=== PATIENT | male | born 1940 | race Caucasian/White ===

== ENCOUNTER 2018-09-06 17:30 | Inpatient (IN) | payer MEDICARE, OTHER ==
[~2018-09-06] VITALS: Ht 180.3 cm; Wt 72.3 kg
[2018-09-06 18:00] VITALS: BP 122/65
[2018-09-06] MEDS ORDERED: METHYL SALICYLATE/MENTHOL TOPICAL OINTMENT 29GM TUBE. TP PRN (18:15)
[2018-09-06] MEDS ORDERED: MAG HYDROX/AL HYDROX/SIMETH 30 ML ORAL.SUSP PO PRN (18:15)
[2018-09-06] MEDS ORDERED: MAGNESIUM HYDROXIDE 2,400 MG/30 ML ORAL.SUSP. PO PRN (18:15)
[2018-09-06] MEDS ORDERED: LEVO112T4 PO (18:17)
[2018-09-06] MEDS ORDERED: SPIR25TA5 PO (18:17)
[2018-09-06] MEDS ORDERED: LISI-334 PO (18:17)
[2018-09-06] MEDS ORDERED: QUET100T4 PO (18:17)
[2018-09-06] MEDS ORDERED: ASPI-630 PO (18:17)
[2018-09-06] MEDS ORDERED: FURO40TA4 PO (18:17)
[2018-09-06] MEDS ORDERED: APIX5TAB3 PO (18:17)
[2018-09-06 21:00] VITALS: BP 128/68
[2018-09-06] MEDS: QUEtiapine 100 MG TABLET. PO SCH (21:11)
[2018-09-06] MEDS: APIXABAN 5 MG TABLET. PO SCH (21:11)
--- NOTE | 2018-09-06 22:36 | PDOC ---
Exam Note: Mike Note: Please also refer to the separate dictated note~for this date of service dictated separately. Discussed the patient with Nursing staff reviewed the chart.~Reviewed interim history and current functioning. Reviewed vital signs,~Labs/ Radiology~and current medications noted below. Continue current treatment with the changes noted in the dictated addendum note Assessment: Vital Signs: Vital Signs Date Time Temp Pulse Resp B/P (MAP) Pulse Ox O2 Delivery O2 Flow Rate FiO2 09/06/18 21:00 97.6 82 20 128/68 (88) 96 09/06/18 18:00 Room Air Current Medications: Meds: Current Medications Acetaminophen (Tylenol) 650 mg PRN Q6HRS PRN PO PAIN / TEMP; Start 09/06/18 at 18:15 Multi-Ingredient Ointment (Analgesic [place]) 1 jose raul PRN QID PRN TP MUSCLE PAIN; Start 09/06/18 at 18:15 Al Hydroxide/Mg Hydroxide (Mylanta Plus Xs) 15 ml PRN AFTMEALHC PRN PO DYSPE PSIA; Start 09/06/18 at 18:15 Magnesium Hydroxide (Milk Of Magnesia) 2,400 mg PRN QHS PRN PO CONSTIPATION; Start 09/06/18 at 18:15 Levothyroxine Sodium (Synthroid) 112 mcg DAILYAC PO ; Start 09/07/18 at 07:30 Lisinopril (Prinivil) 20 mg DAILY PO ; Start 09/07/18 at 09:00 Apixaban (Eliquis) 5 mg BID PO Last administered on 09/06/18at 21:11; Start 09/06/18 at 21:00 Aspirin (Children'S Aspirin) 81 mg DAILYWBKFT PO ; Start 09/07/18 at 08:00 Furosemide (Lasix) 40 mg BIDWMEALS PO ; Start 09/07/18 at 08:00 Quetiapine Fumarate (SEROquel) 100 mg BID PO Last administered on 09/06/18at 21:11; Start 09/06/18 at 21:00 Spironolactone (Aldactone) 25 mg DAILY PO ; Start 09/07/18 at 09:00 Olanzapine (ZyPREXA ZYDIS) 2.5 mg PRN Q2HR PRN PO PSYCHOSIS Last administered on 09/06/18at 21:12; Start 09/06/18 at 18:30 Active Scripts Active Reported Seroquel (Quetiapine Fumarate) 100 Mg Tablet 100 Mg PO BID Levothyroxine Sodium 112 Mcg Tablet 112 Mcg PO DAILYAC Aspirin 81 Mg Tab.chew 81 Mg PO DAILY Spironolactone 25 Mg Tablet 25 Mg PO DAILY Lisinopril 20 Mg Tablet 20 Mg PO DAILY Furosemide 40 Mg Tablet 40 Mg PO BIDWMEALS Eliquis (Apixaban) 5 Mg Tablet 5 Mg PO BID I have reviewed the current psychotropics carefully including drug interactions. Risk benefit ratio favors no change other than as noted in my dictated progress note. 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
[2018-09-07] MEDS: LEVOTHYROXINE 112 MCG TABLET PO SCH ×2 (05:25→05:28)
[2018-09-07 05:49] VITALS: BP 154/76
[2018-09-07 06:59] LABS: BASO # 0.1 x10^3/uL (0.0-0.2); BASO % 2 % (0-3); EOS # 0.6 x10^3/uL (0.0-0.7); EOS % 7 % (0-3); HEMATOCRIT 38.2 % (39.0-53.0); HEMOGLOBIN 12.4 g/dL (13.0-17.5); LYMPH # 2.6 x10^3/uL (1.0-4.8); LYMPH % 31 % (24-48); MEAN CORPUSCULAR HEMOGLOBIN 28 pg (25-35); MEAN CORPUSCULAR HGB CONC 33 g/dL (31-37); MEAN CORPUSCULAR VOLUME 87 fL (79-100); MONO % 11 % (0-9); NEUT # 4.2 x10^3uL (1.8-7.7); NEUT % 50 % (31-73); PLATELET COUNT 461 x10^3/uL (140-400); RED BLOOD COUNT 4.38 x10^6/uL (4.30-5.70); WHITE BLOOD COUNT 8.5 x10^3/uL (4.0-11.0)
[2018-09-07 07:15] LABS: ALBUMIN 2.7 g/dL (3.4-5.0); ALBUMIN/GLOBULIN RATIO 0.6 (1.0-1.7); CALCIUM 9.1 mg/dL (8.5-10.1); CREATININE 1.1 mg/dL (0.7-1.3); GFR 64.7; MAGNESIUM 2.3 mg/dL (1.8-2.4); POTASSIUM 3.8 mmol/L (3.5-5.1); TOTAL BILIRUBIN 0.3 mg/dL (0.2-1.0); TOTAL PROTEIN 7.6 g/dL (6.4-8.2)
[2018-09-07] MEDS ORDERED: LEVOTHYROXINE 112 MCG TABLET PO SCH (07:30)
[2018-09-07] MEDS: QUEtiapine 100 MG TABLET. PO SCH ×2 (08:16→19:13)
[2018-09-07] MEDS: APIXABAN 5 MG TABLET. PO SCH ×2 (08:17→19:13)
[2018-09-07] MEDS: SPIRONOLACTONE 25 MG TABLET PO SCH (08:19)
[2018-09-07] MEDS: LISINOPRIL 20 MG TABLET PO SCH (08:19)
[2018-09-07] MEDS: FUROSEMIDE 40 MG TABLET PO SCH (08:19)
[2018-09-07] MEDS: ASPIRIN 81 MG TAB.CHEW PO SCH (08:19)
--- NOTE | 2018-09-07 08:42 | HP ---
ADMIT DATE: 09/06/2018 PSYCHIATRIC ADMISSION HISTORY/EVALUATION This late entry 09/06/2018 covers elements not covered in my initial note. Met with the patient in the evening of 09/06/2018, discussed with nursing staff, previously discussed with nursing staff on the patient's admission and with Marisa Ramirez, treatment coordinator, after we received the referral from [facility] and [facility] by Dr. Lockhart, the patient's primary care physician, on account of the patient's extremely out of control, unmanageable behavior within the context of his significant cognitive deficits. He was exit seeking, hitting staff, provoking other residents intentionally. He was walking up to other residents with fist, withdrawn. He threw hot coffee at others around him. Behaviors are deemed dangerous, out of control, unmanageable and he has failed outpatient psychiatric interventions with Steffany Ko, nurse practitioner, and referred for inpatient psychiatric stabilization. The patient resides at the [facility] and [facility], but was referred to the Emergency Room on 09/06/2018 because of dangerous, out of control behaviors. He was evaluated there. Behaviors deemed to be dangerous, out of control, unmanageable at the alf and then referred to us for inpatient psychiatric stabilization. CHIEF COMPLAINT: "I was in the [place]. Yes, I used to drink heavy. No, I do not have any problems, getting angry." The patient is quite confused, oriented to himself, felt he had been here about 2 months, even though he was just admitted earlier in the day. HISTORY OF PRESENT ILLNESS: The patient has a history of dementia, Alzheimer's, vascular, possibly due to past alcohol usage. He has been residing at the above facility for some time, but recently getting more agitated, angry, aggressive, disruptive and exit seeking as noted above. He has been hitting staff, provoking other residents intentionally. Multiple medication changes have been attempted and rooms have been changed to change the environment, moved away from doors. Additionally, staffs have taken his coat away as part of the behavioral interventions and he has failed all of this. No clear history of bipolar disorder. No active suicidal or homicidal ideation other than as noted above. PAST PSYCHIATRIC HISTORY: Past psychiatric history is as noted above. PAST MEDICAL HISTORY: Medical history is positive for atrial fibrillation, past history of alcohol abuse, cataracts, hypertension, arthritis, muscle weakness, hypothyroidism, cancer bladder, hyperlipidemia, hyponatremia, status post transient ischemic attack, chronic obstructive pulmonary disease, chronic constipation, chronic joint pain, benign prostatic hypertrophy. ACCU-CHEKS: None. DIET: Regular. CODE STATUS: DNR. ALLERGIES: HYDROCODONE, OXYCODONE, TRAMADOL. Ambulates ad farhana. UA on 09/06/2018 is negative at the [facility]. The patient was initially referred to the Emergency Room and he was in fact did refer directly to us from the ER. CURRENT PSYCHOTROPICS: Seroquel 100 mg twice a day. FAMILY HISTORY: Noncontributory. SOCIAL HISTORY: Past history of alcohol abuse. No physical, sexual or elder abuse history is noted. He is not known to be a perpetrator. REACTION TO HOSPITALIZATION: The patient oblivious of where he is. ASSETS: Supportive family, stable living at the alf. MENTAL STATUS EXAMINATION: The patient was seen individually in evening of 09/06/2018. He is oriented to himself, verbal, but felt he had been here about 2 months. He is unaware of the year or date, month, or who the president was, or where he was. Insight, judgment, recent and remote memory, attention, concentration, fund of knowledge is poor, consistent with his diagnoses. LABORATORY DATA: Reviewed. IMPRESSION: Major neurocognitive disorder, multifactorial, Alzheimer, vascular and related to past alcohol usage with delusion, depression, behavioral disturbance; anxiety disorder, unspecified; impulse control disorder, unspecified. Rest diagnoses as noted above. PLAN: Admit to Geropsychiatry Unit at [facility]. I will see the patient daily individually from a psychiatric standpoint. Medical followup with Dr. Cheng. Continue the patient on his current psychotropics. We will add Zyprexa 2.5 mg q. 2 hours p.r.n. psychosis, agitation, max 15 mg in 24 hours. Even during the short while he has been on the unit, he is quite irritable, labile, anxious, paranoid, and nursing staff requested a p.r.n. We will make further adjustments as clinically indicated and consider using SSRIs and Depakote as a mood stabilizer as clinically indicated. ESTIMATED LENGTH OF STAY: 10-12 days. DISPOSITION: Plans would be back to alf once stable. MAN Aaron LIM MD DR: Sanjeev JOB#: [id number] / [id number]
[2018-09-07 14:38] LABS: THYROID STIM HORMONE (TSH) 2.695 uIU/mL (0.358-3.740)
--- NOTE | 2018-09-07 15:23 | RAD ---
Chest, 2 views, 09/07/2018: HISTORY: COPD with crepitance The heart size is normal. There is calcific plaquing of the aorta. Several linear parenchymal opacities are probably scars. No pulmonary consolidation is seen. There is no evidence of pleural fluid. Mild scattered spurs are present in the spine. IMPRESSION: 1. Aortic atherosclerosis. 2. Minimal parenchymal scarring. 3. No acute infiltrate is detected. Electronically signed by: Reese Morillo MD (09/07/2018 3:20 PM) [facility]
[2018-09-07 16:27] VITALS: BP 137/67
[2018-09-07 19:07] LABS: THYROXINE 5.7 ug/dL (4.5-12.0)
--- NOTE | 2018-09-07 20:04 | PN ---
DATE: 09/06/2018 PSYCHIATRIC PROGRESS NOTE This late entry 09/06/2018 covers elements not covered in my initial note. DICTATION ENDS HERE. KAITLIN LIM MD DR: Sanjeev JOB#: [id number] / [id number]
[2018-09-07] MEDS: MIRTAZAPINE 7.5 MG TABLET. PO SCH (20:20)
--- NOTE | 2018-09-07 22:41 | PDOC ---
Exam Note: Mike Note: Please also refer to the separate dictated note~for this date of service dictated separately.~Patient seen individually. Discussed the patient with Nursing staff reviewed the chart.~Reviewed interim history and current functioning. Reviewed vital signs,~Labs/ Radiology~and current medications noted below. Continue current treatment with the changes noted in the dictated addendum note Assessment: Vital Signs: Vital Signs Date Time Temp Pulse Resp B/P (MAP) Pulse Ox O2 Delivery O2 Flow Rate FiO2 09/07/18 16:27 97.3 69 16 137/67 (90) 93 09/06/18 18:00 Room Air I&O Intake and Output 09/07/18 06:59 Intake Total 600 ml Balance 600 ml Intake Oral 600 ml # Voids 1 Labs: Laboratory Tests Test 09/07/18 06:47 White Blood Count 8.5 x10^3/uL (4.0-11.0) Red Blood Count 4.38 x10^6/uL (4.30-5.70) Hemoglobin 12.4 g/dL (13.0-17.5) L Hematocrit 38.2 % (39.0-53.0) L Mean Corpuscular Volume 87 fL (79-100) Mean Corpuscular Hemoglobin 28 pg (25-35) Mean Corpuscular Hemoglobin Concent 33 g/dL (31-37) Red Cell Distribution Width 17.0 % (11.5-14.5) H Platelet Count 461 x10^3/uL (140-400) H Neutrophils (%) (Auto) 50 % (31-73) Lymphocytes (%) (Auto) 31 % (24-48) Monocytes (%) (Auto) 11 % (0-9) H Eosinophils (%) (Auto) 7 % (0-3) H Basophils (%) (Auto) 2 % (0-3) Neutrophils # (Auto) 4.2 x10^3uL (1.8-7.7) Lymphocytes # (Auto) 2.6 x10^3/uL (1.0-4.8) Monocytes # (Auto) 1.0 x10^3/uL (0.0-1.1) Eosinophils # (Auto) 0.6 x10^3/uL (0.0-0.7) Basophils # (Auto) 0.1 x10^3/uL (0.0-0.2) Sodium Level 144 mmol/L (136-145) Potassium Level 3.8 mmol/L (3.5-5.1) Chloride Level 106 mmol/L (98-107) Carbon Dioxide Level 31 mmol/L (21-32) Anion Gap 7 (6-14) Blood Urea Nitrogen 16 mg/dL (8-26) Creatinine 1.1 mg/dL (0.7-1.3) Estimated GFR (Cockcroft-Gault) 64.7 BUN/Creatinine Ratio 15 (6-20) Glucose Level 79 mg/dL (70-99) Calcium Level 9.1 mg/dL (8.5-10.1) Magnesium Level 2.3 mg/dL (1.8-2.4) Iron Level 44 ug/dL (65-175) L Total Iron Binding Capacity 276 ug/dL (250-450) Iron Saturation 16 % (15-34) Total Bilirubin 0.3 mg/dL (0.2-1.0) Aspartate Amino Transferase (AST) 20 U/L (15-37) Alanine Aminotransferase (ALT) 23 U/L (16-63) Alkaline Phosphatase 88 U/L (46-116) Total Protein 7.6 g/dL (6.4-8.2) Albumin 2.7 g/dL (3.4-5.0) L Albumin/Globulin Ratio 0.6 (1.0-1.7) L Triglycerides Level 96 mg/dL (0-150) Cholesterol Level 173 mg/dL (0-200) LDL Cholesterol, Calculated 113 mg/dL (0-100) H VLDL Cholesterol, Calculated 19 mg/dL (0-40) Non-HDL Cholesterol Calculated 132 mg/dL (0-129) H HDL Cholesterol 41 mg/dL (40-60) Cholesterol/HDL Ratio 4.0 25-Hydroxy Vitamin D Total 25.6 ng/mL (30-100) L Thyroid Stimulating Hormone (TSH) 2.695 uIU/mL (0.358-3.740) Thyroxine (T4) 5.7 ug/dL (4.5-12.0) Total Triiodothyronine (TT3) 67 ng/dL (71-180) L Treponema pallidum Antibody Nonreactive (Nonreactive) Current Medications: Meds: Current Medications Acetaminophen (Tylenol) 650 mg PRN Q6HRS PRN PO PAIN / TEMP; Start 09/06/18 at 18:15 Multi-Ingredient Ointment (Analgesic [place]) 1 jose raul PRN QID PRN TP MUSCLE PAIN; Start 09/06/18 at 18:15 Al Hydroxide/Mg Hydroxide (Mylanta Plus Xs) 15 ml PRN AFTMEALHC PRN PO DYSPEPSIA; Start 09/06/18 at 18:15 Magnesium Hydroxide (Milk Of Magnesia) 2,400 mg PRN QHS PRN PO CONSTIPATION; Start 09/06/18 at 18:15 Levothyroxine Sodium (Synthroid) 112 mcg DAILYAC PO ; Start 09/07/18 at 07:30; Stop 09/07/18 at 07:30; Status DC Lisinopril (Prinivil) 20 mg DAILY PO Last administered on 09/07/18at 08:19; Start 09/07/18 at 09:00 Apixaban (Eliquis) 5 mg BID PO Last administered on 09/07/18at 19:13; Start 09/06/18 at 21:00 Aspirin (Children'S Aspirin) 81 mg DAILYWBKFT PO Last administered on 09/07/18 08:19; Start 09/07/18 at 08:00 Furosemide (Lasix) 40 mg BIDWMEALS PO Last administered on 09/07/18at 08:19; Start 09/07/18 at 08:00 Quetiapine Fumarate (SEROquel) 100 mg BID PO Last administered on 09/07/18at 19:13; Start 09/06/18 at 21:00 Spironolactone (Aldactone) 25 mg DAILY PO Last administered on 09/07/18 08:19; Start 09/07/18 at 09:00 Olanzapine (ZyPREXA ZYDIS) 2.5 mg PRN Q2HR PRN PO PSYCHOSIS Last administered on 09/07/18 21:50; Start 09/06/18 at 18:30 Levothyroxine Sodium (Synthroid) 112 mcg DAILYAC PO Last administered on 09/07/18at 05:28; Start 09/07/18 at 06:00 Sertraline HCl (Zoloft) 25 mg DAILY PO ; Start 09/08/18 at 09:00; Stop 09/11/18 at 21:00 Sertraline HCl (Zoloft) 50 mg DAILY PO ; Start 09/12/18 at 09:00 Mirtazapine (Remeron) 7.5 mg QHS PO Last administered on 09/07/18at 20:20; Start 09/07/18 at 21:00 Active Scripts Active Reported Seroquel (Quetiapine Fumarate) 100 Mg Tablet 100 Mg PO BID Levothyroxine Sodium 112 Mcg Tablet 112 Mcg PO DAILYAC Aspirin 81 Mg Tab.chew 81 Mg PO DAILY Spironolactone 25 Mg Tablet 25 Mg PO DAILY Lisinopril 20 Mg Tablet 20 Mg PO DAILY Furosemide 40 Mg Tablet 40 Mg PO BIDWMEALS Eliquis (Apixaban) 5 Mg Tablet 5 Mg PO BID I have reviewed the current psychotropics carefully including drug interactions. Risk benefit ratio favors no change other than as noted in my dictated progress note. 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
[2018-09-07 23:07] LABS: HEMOGLOBIN A1C 6.2 % (4.8-5.6)
--- NOTE | 2018-09-08 04:40 | HP ---
ADMIT DATE: 09/07/2018 HISTORY OF PRESENT ILLNESS: The patient is a 78-year-old male patient, a resident at [facility], who was admitted on account of being extremely out of control, unmanageable behavior within the context of his significant cognitive deficit. He was exit seeking, hitting staff, provoking other residents intentionally. He was walking up to other residents with fist withdrawn. He threw hot coffee at others around him, behaviors that are dangerous, out of control, unmanageable and he has failed outpatient psychiatric intervention and therefore was referred for inpatient psychiatric stabilization. When I questioned him, he denied any complaint. PAST MEDICAL HISTORY: Significant for atrial fibrillation, hypertension, generalized osteoarthritis, muscle weakness, hypothyroidism, bladder cancer, hyperlipidemia, hypernatremia, has had also transient ischemic attack, chronic obstructive pulmonary disease, chronic constipation, benign prostatic hypertrophy. PAST SURGICAL HISTORY: Unobtainable. ALLERGIES: HE IS ALLERGIC TO HYDROCODONE, OXYCODONE AND TRAMADOL. FAMILY HISTORY: Noncontributory. SOCIAL HISTORY: He is a resident at [facility] and [facility]. He apparently does not smoke. He drinks alcohol currently, although he has a history of alcohol abuse before. MEDICATIONS: He is currently on following medications: He is on apixaban 5 mg twice a day, lisinopril 20 mg once a day, spironolactone 25 mg daily, aspirin 81 mg once a day, quetiapine fumarate 100 mg twice a day, furosemide 40 mg twice a day and levothyroxine sodium 112 mcg daily. PHYSICAL EXAMINATION: GENERAL: When I examined him, he looked pale, somewhat cachectic, but no jaundice, cyanosis or thyromegaly. No jugular venous distention. No limb edema. VITAL SIGNS: His heart rate was 72, blood pressure was 154/76, temperature was 97.4, respiratory rate was 18 and oxygen saturation was 95% on room air. HEAD, EYES, EARS, NOSE AND THROAT: Showed normocephalic, atraumatic. NECK: Supple. HEART: Showed normal first and second heart sounds. No gallop, rub or murmur. CHEST: Shows central trachea, equal bilateral expansion, air entry, vesicular sounds with crepitation, mostly in the right side posteriorly. ABDOMEN: Scaphoid, soft, nontender. NEUROLOGIC: He is demented, but without any obvious lateralizing sign. All his cranial nerves are intact. He moves extremities without difficulty. He has severe proximal myopathy. He is unable to stand up from sitting position. He has also very unsteady gait and he is shuffling. LABORATORY DATA: His lab work showed a serum sodium 144, potassium 3.8, chloride 106, bicarbonate 31, anion gap of 7, BUN 16, creatinine 1.1, estimated GFR was 65 mL per minute. His glucose was 79, calcium was 9.1, magnesium was 2.3. Total bilirubin, AST, ALT, alkaline phosphatase were normal. Total protein was 7.6, albumin was 2.7. Serum triglycerides of 96. Total cholesterol 173, LDL cholesterol 113, VLDL was 19, HDL cholesterol was 41 and the ratio was 4. TSH was 2.695. His white cell count was 8500, hemoglobin 12, hematocrit 38, MCV 87, and platelet count of 161,000 with normal manual differential. IMPRESSION: In summary, this is a 78-year-old male patient, who was admitted on account of being extremely out of control with unmanageable behavior within the context of his significant cognitive deficit. He apparently was exit seeking, hitting staff, provoking other resident intentionally. He was walking up to other residents with fist withdrawn. He throws hot coffee at others around him and therefore, he was admitted for inpatient psychiatric stabilization medically. He has multiple medical problems including hypertension, hyperlipidemia, atrial fibrillation, hypothyroidism. He is also known to have transient ischemic attack, chronic obstructive pulmonary disease, benign prostatic hypertrophy, and chronic constipation as well as osteoarthritis. His lab works seemed to be well within acceptable range and his medications seem to be appropriate. His thyroid function test is normal. Given his unsteady gait, he is probably going to be high risk for fall and bleeding. He is on apixaban and aspirin. PLAN: My plan is for now to continue with all his current medication. I will obviously await for the result of other lab work that are still pending at the time of this dictation and I will order a chest x-ray and as he has prominent crepitation mostly in the right side posteriorly. Thank you, Dr. Kerr for allowing me to participate in the care of this patient. CARRIE CARREON MD DR: ABEL/dayna JOB#: [id number] / [id number]
[2018-09-08] MEDS: LEVOTHYROXINE 112 MCG TABLET PO SCH (05:37)
[2018-09-08 05:53] VITALS: BP 121/71
[2018-09-08] MEDS: SERTRALINE 25 MG TABLET. PO SCH (07:58)
[2018-09-08] MEDS: LISINOPRIL 20 MG TABLET PO SCH (07:59)
[2018-09-08] MEDS: ASPIRIN 81 MG TAB.CHEW PO SCH (07:59)
[2018-09-08] MEDS: SPIRONOLACTONE 25 MG TABLET PO SCH (07:59)
[2018-09-08] MEDS: APIXABAN 5 MG TABLET. PO SCH ×2 (07:59→19:26)
[2018-09-08] MEDS: QUEtiapine 100 MG TABLET. PO SCH ×2 (07:59→19:26)
[2018-09-08] MEDS: FUROSEMIDE 40 MG TABLET PO SCH ×2 (07:59→16:54)
[2018-09-08 15:53] VITALS: BP 138/79
[2018-09-08] MEDS: DIVALPROEX 125 MG CAP.SPRINK PO SCH (16:54)
[2018-09-08] MEDS: MIRTAZAPINE 7.5 MG TABLET. PO SCH (19:26)
--- NOTE | 2018-09-08 22:33 | PDOC ---
Exam Note: Mike Note: Please also refer to the separate dictated note~for this date of service dictated separately.~Patient seen individually. Discussed the patient with Nursing staff reviewed the chart.~Reviewed interim history and current functioning. Reviewed vital signs,~Labs/ Radiology~and current medications noted below. Continue current treatment with the changes noted in the dictated addendum note Assessment: Vital Signs: Vital Signs Date Time Temp Pulse Resp B/P (MAP) Pulse Ox O2 Delivery O2 Flow Rate FiO2 09/08/18 15:53 97.7 102 22 138/79 (98) 93 Room Air I&O Intake and Output 09/08/18 07:00 Intake Total 1560 ml Balance 1560 ml Intake Oral 1560 ml # Voids 2 # Bowel Movements 1 Current Medications: Meds: Current Medications Acetaminophen (Tylenol) 650 mg PRN Q6HRS PRN PO PAIN / TEMP; Start 09/06/18 at 18:15 Multi-Ingredient Ointment (Analgesic [place]) 1 jose raul PRN QID PRN TP MUSCLE PAIN; Start 09/06/18 at 18:15 Al Hydroxide/Mg Hydroxide (Mylanta Plus Xs) 15 ml PRN AFTMEALHC PRN PO DYSPEPSIA; Start 09/06/18 at 18:15 Magnesium Hydroxide (Milk Of Magnesia) 2,400 mg PRN QHS PRN PO CONSTIPATION; Start 09/06/18 at 18:15 Levothyroxine Sodium (Synthroid) 112 mcg DAILYAC PO ; Start 09/07/18 at 07:30; Stop 09/07/18 at 07:30; Status DC Lisinopril (Prinivil) 20 mg DAILY PO Last administered on 09/08/18at 07:59; Start 09/07/18 at 09:00 Apixaban (Eliquis) 5 mg BID PO Last administered on 09/08/18at 19:26; Start 09/06/18 at 21:00 Aspirin (Children'S Aspirin) 81 mg DAILYWBKFT PO Last administered on 09/08/18 07:59; Start 09/07/18 at 08:00 Furosemide (Lasix) 40 mg BIDWMEALS PO Last administered on 09/08/18at 16:54; Start 09/07/18 at 08:00 Quetiapine Fumarate (SEROquel) 100 mg BID PO Last administered on 09/08/18 19:26; Start 09/06/18 at 21:00 Spironolactone (Aldactone) 25 mg DAILY PO Last administered on 09/08/18 07:59; Start 09/07/18 at 09:00 Olanzapine (ZyPREXA ZYDIS) 2.5 mg PRN Q2HR PRN PO PSYCHOSIS Last administered on 09/07/18 21:50; Start 09/06/18 at 18:30 Levothyroxine Sodium (Synthroid) 112 mcg DAILYAC PO Last administered on 09/08/18 05:37; Start 09/07/18 at 06:00 Sertraline HCl (Zoloft) 25 mg DAILY PO Last administered on 09/08/18 07:58; Start 09/08/18 at 09:00; Stop 09/11/18 at 21:00 Sertraline HCl (Zoloft) 50 mg DAILY PO ; Start 09/12/18 at 09:00 Mirtazapine (Remeron) 7.5 mg QHS PO Last administered on 09/08/18 19:26; Start 09/07/18 at 21:00 Olanzapine (ZyPREXA ZYDIS) 5 mg 1X ONCE PO Last administered on 09/07/18 23:05; Start 09/07/18 at 23:00; Stop 09/07/18 at 23:02; Status DC Divalproex Sodium (Depakote Sprinkles) 125 mg 0900,1700 PO Last administered on 09/08/18 16:54; Start 09/08/18 at 17:00 Active Scripts Active Reported Seroquel (Quetiapine Fumarate) 100 Mg Tablet 100 Mg PO BID Levothyroxine Sodium 112 Mcg Tablet 112 Mcg PO DAILYAC Aspirin 81 Mg Tab.chew 81 Mg PO DAILY Spironolactone 25 Mg Tablet 25 Mg PO DAILY Lisinopril 20 Mg Tablet 20 Mg PO DAILY Furosemide 40 Mg Tablet 40 Mg PO BIDWMEALS Eliquis (Apixaban) 5 Mg Tablet 5 Mg PO BID I have reviewed the current psychotropics carefully including drug interactions. Risk benefit ratio favors no change other than as noted in my dictated progress note. 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
[2018-09-09 06:22] VITALS: BP 174/95
[2018-09-09] MEDS: QUEtiapine 100 MG TABLET. PO SCH ×2 (07:45→19:45)
[2018-09-09] MEDS: SPIRONOLACTONE 25 MG TABLET PO SCH (07:45)
[2018-09-09] MEDS: APIXABAN 5 MG TABLET. PO SCH ×2 (07:45→19:45)
[2018-09-09] MEDS: SERTRALINE 25 MG TABLET. PO SCH (07:45)
[2018-09-09] MEDS: ASPIRIN 81 MG TAB.CHEW PO SCH (07:45)
[2018-09-09] MEDS: DIVALPROEX 125 MG CAP.SPRINK PO SCH ×2 (07:45→17:29)
[2018-09-09] MEDS: LEVOTHYROXINE 112 MCG TABLET PO SCH (07:45)
[2018-09-09] MEDS: FUROSEMIDE 40 MG TABLET PO SCH ×2 (07:46→17:29)
[2018-09-09] MEDS: LISINOPRIL 20 MG TABLET PO SCH (07:46)
[2018-09-09 16:48] VITALS: BP 131/66
[2018-09-09] MEDS: MIRTAZAPINE 7.5 MG TABLET. PO SCH (19:45)
--- NOTE | 2018-09-09 20:55 | PN ---
DATE: 09/07/2018 PSYCHIATRIC PROGRESS NOTE This late entry 09/07/2018 covers elements not covered in my initial note. SUBJECTIVE: I met with the patient in the evening of 09/07/2018. The patient slept 5-1/2 hours previous night. He did well until about lunchtime, then he was extremely agitated, aggressive, disruptive, hitting staff, had to be in the [facility] hallway. He is unsteady on his feet, anxious, restless, obsessive, labile, paranoid. REVIEW OF SYSTEMS: No CV, , pulmonary, eye, ENT system symptoms on review. Reliability poor. MENTAL STATUS EXAM: Oriented to himself. Insight, judgment, recent and remote memory, attention, concentration, fund of knowledge poor, consistent with his diagnosis. IMPRESSION: Major neurocognitive disorder, Alzheimer, vascular with delusion, depression, behavioral disturbance; anxiety disorder, unspecified; impulse control disorder, unspecified. PLAN: Continue psychotropics from initial note. Start Remeron 7.5 mg at bedtime to help with insomnia, anxiety, irritability, and Zoloft 25 mg a day, increasing in 3 days to 50 mg a day for his mood and anxiety symptoms, which worsened his anger, irritability. Rest unchanged for now. MAN Aaron LIM MD DR: JUDITH/dayna JOB#: [id number] / [id number]
--- NOTE | 2018-09-09 22:36 | PDOC ---
Exam Note: Mike Note: Please also refer to the separate dictated note~for this date of service dictated separately.~Patient seen individually. Discussed the patient with Nursing staff reviewed the chart.~Reviewed interim history and current functioning. Reviewed vital signs,~Labs/ Radiology~and current medications noted below. Continue current treatment with the changes noted in the dictated addendum note Assessment: Vital Signs: Vital Signs Date Time Temp Pulse Resp B/P (MAP) Pulse Ox O2 Delivery O2 Flow Rate FiO2 09/09/18 16:48 98.0 104 20 131/66 (87) 94 09/08/18 15:53 Room Air I&O Intake and Output 09/09/18 07:00 Intake Total 1180 ml Balance 1180 ml Intake Oral 1180 ml Current Medications: Meds: Current Medications Acetaminophen (Tylenol) 650 mg PRN Q6HRS PRN PO PAIN / TEMP; Start 09/06/18 at 18:15 Multi-Ingredient Ointment (Analgesic [place]) 1 jose raul PRN QID PRN TP MUSCLE PAIN; Start 09/06/18 at 18:15 Al Hydroxide/Mg Hydroxide (Mylanta Plus Xs) 15 ml PRN AFTMEALHC PRN PO DYSPEPSIA; Start 09/06/18 at 18:15 Magnesium Hydroxide (Milk Of Magnesia) 2,400 mg PRN QHS PRN PO CONSTIPATION; Start 09/06/18 at 18:15 Levothyroxine Sodium (Synthroid) 112 mcg DAILYAC PO ; Start 09/07/18 at 07:30; Stop 09/07/18 at 07:30; Status DC Lisinopril (Prinivil) 20 mg DAILY PO Last administered on 09/09/18at 07:46; Start 09/07/18 at 09:00 Apixaban (Eliquis) 5 mg BID PO Last administered on 09/09/18at 19:45; Start 09/06/18 at 21:00 Aspirin (Children'S Aspirin) 81 mg DAILYWBKFT PO Last administered on 09/09/18 07:45; Start 09/07/18 at 08:00 Furosemide (Lasix) 40 mg BIDWMEALS PO Last administered on 09/09/18 17:29; Start 09/07/18 at 08:00 Quetiapine Fumarate (SEROquel) 100 mg BID PO Last administered on 09/09/18 19:45; Start 09/06/18 at 21:00 Spironolactone (Aldactone) 25 mg DAILY PO Last administered on 09/09/18 07:45; Start 09/07/18 at 09:00 Olanzapine (ZyPREXA ZYDIS) 2.5 mg PRN Q2HR PRN PO PSYCHOSIS Last administered on 09/07/18 21:50; Start 09/06/18 at 18:30 Levothyroxine Sodium (Synthroid) 112 mcg DAILYAC PO Last administered on 09/09/18 07:45; Start 09/07/18 at 06:00 Sertraline HCl (Zoloft) 25 mg DAILY PO Last administered on 09/09/18 07:45; Start 09/08/18 at 09:00; Stop 09/11/18 at 21:00 Sertraline HCl (Zoloft) 50 mg DAILY PO ; Start 09/12/18 at 09:00 Mirtazapine (Remeron) 7.5 mg QHS PO Last administered on 09/09/18 19:45; Start 09/07/18 at 21:00 Olanzapine (ZyPREXA ZYDIS) 5 mg 1X ONCE PO Last administered on 09/07/18at 23:05; Start 09/07/18 at 23:00; Stop 09/07/18 at 23:02; Status DC Divalproex Sodium (Depakote Sprinkles) 125 mg 0900,1700 PO Last administered on 09/09/18at 17:29; Start 09/08/18 at 17:00 Vitamin D (Vitamin D3) 50,000 unit WEEKLY PO ; Start 09/10/18 at 09:00 Active Scripts Active Reported Seroquel (Quetiapine Fumarate) 100 Mg Tablet 100 Mg PO BID Levothyroxine Sodium 112 Mcg Tablet 112 Mcg PO DAILYAC Aspirin 81 Mg Tab.chew 81 Mg PO DAILY Spironolactone 25 Mg Tablet 25 Mg PO DAILY Lisinopril 20 Mg Tablet 20 Mg PO DAILY Furosemide 40 Mg Tablet 40 Mg PO BIDWMEALS Eliquis (Apixaban) 5 Mg Tablet 5 Mg PO BID I have reviewed the current psychotropics carefully including drug interactions. Risk benefit ratio favors no change other than as noted in my dictated progress note. 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
--- NOTE | 2018-09-09 22:43 | PN ---
DATE: 09/08/2018 PSYCHIATRIC PROGRESS NOTE This late entry 09/08/2018 covers elements not covered in my initial note. SUBJECTIVE: I met with the patient in the evening, staffed at a treatment team meeting with the entire team in the morning. I reviewed the patient's history. The patient's girlfriend of 12 years was to attend the treatment team meeting, we tried to contact her, but she was unavailable. Sleeping 5-1/2 hours on average, confused, agitated, combative frequently. Agitation worsens in the evening. Refused to use a walker, irritable. REVIEW OF SYSTEMS: No CV, , pulmonary, eye, ENT system symptoms on review. Reliability poor. MENTAL STATUS EXAM: Oriented to himself. Insight, judgment, recent and remote memory, attention, concentration, fund of knowledge poor, consistent with his diagnosis mentioned in my initial note. IMPRESSION: Major neurocognitive disorder, Alzheimer, vascular with delusion, depression, behavioral disturbance; anxiety disorder, unspecified; impulse control disorder, unspecified. Rest unchanged from initial note. PLAN: Start Depakote Sprinkles 125 mg twice a day. Check CBC, CMP, valproic acid level in 3 days. Maintain Seroquel 100 mg b.i.d., Zyprexa p.r.n., Remeron 7.5 mg at bedtime, Zoloft 25 mg a day, increasing to 50 mg a day. Make further adjustments as clinically indicated. KAITLIN LIM MD DR: JUDITH/dayna JOB#: [id number] / [id number]
[2018-09-10] MEDS: ACETAMINOPHEN 325 MG TABLET PO PRN (03:31)
[2018-09-10 06:16] VITALS: BP 172/77
[2018-09-10] MEDS: ASPIRIN 81 MG TAB.CHEW PO SCH (07:48)
[2018-09-10] MEDS: APIXABAN 5 MG TABLET. PO SCH ×2 (07:48→19:45)
[2018-09-10] MEDS: LEVOTHYROXINE 112 MCG TABLET PO SCH (07:48)
[2018-09-10] MEDS: LISINOPRIL 20 MG TABLET PO SCH (07:48)
[2018-09-10] MEDS: SERTRALINE 25 MG TABLET. PO SCH (07:48)
[2018-09-10] MEDS: SPIRONOLACTONE 25 MG TABLET PO SCH (07:48)
[2018-09-10] MEDS: FUROSEMIDE 40 MG TABLET PO SCH ×2 (07:48→17:00)
[2018-09-10] MEDS: DIVALPROEX 125 MG CAP.SPRINK PO SCH ×2 (07:48→17:00)
[2018-09-10] MEDS: QUEtiapine 100 MG TABLET. PO SCH ×2 (07:48→19:46)
[2018-09-10] MEDS: CHOLECALCIFEROL (VITAMIN D3) 50,000 UNIT CAPSULE PO SCH (07:49)
[2018-09-10 16:52] VITALS: BP 138/73
--- NOTE | 2018-09-10 18:08 | PN ---
DATE: 09/09/2018 PSYCHIATRIC PROGRESS NOTE This late entry 09/09/2018 covers elements not covered in my initial note. SUBJECTIVE: I met with the patient in the evening of 09/09/2018. The patient slept 7 hours previous night. He has been confused, restless, wandering, often walks away with the walker. Impaired ambulation. REVIEW OF SYSTEMS: No CV, , pulmonary, eye, ENT system symptoms on review. Reliability poor. He was quite irritable previous evening. MENTAL STATUS EXAM: Oriented to himself. Insight, judgment, recent and remote memory, attention, concentration, fund of knowledge poor, consistent with his diagnosis. IMPRESSION: Major neurocognitive disorder, Alzheimer, vascular with delusion, depression, behavioral disturbance; anxiety disorder, unspecified; impulse control disorder, unspecified. Rest unchanged. PLAN: No change from initial note for now and reviewed drug interactions of his current psychotropics at length. KAITLIN LIM MD DR: JUDITH/dayna JOB#: [id number] / [id number]
[2018-09-10] MEDS: traZODone 50 MG TABLET. PO SCH (19:46)
[2018-09-10] MEDS: MIRTAZAPINE 7.5 MG TABLET. PO SCH (19:46)
--- NOTE | 2018-09-10 20:20 | PN ---
DATE: 09/10/2018 PSYCHIATRIC PROGRESS NOTE This note covers elements not covered in my initial note. SUBJECTIVE: The patient slept 4-3/4 hours previous night. He continues to have significant insomnia per nursing report. He remains confused, somewhat agitated at times, but redirects. REVIEW OF SYSTEMS: No CV, , pulmonary, eye, ENT system symptoms on review. Reliability poor. MENTAL STATUS EXAM: Oriented to himself. Insight, judgment, recent and remote memory, attention, concentration, fund of knowledge poor, consistent with his diagnosis. LABORATORY DATA: Reviewed. IMPRESSION: Major neurocognitive disorder, Alzheimer, vascular with delusion, depression, behavioral disturbance. Rest unchanged. PLAN: Continue current psychotropic, start trazodone 50 mg at bedtime, may repeat x 1 for insomnia. Make further changes as clinically indicated. MAN Aaron LIM MD DR: JUDITH/dayna JOB#: [id number] / [id number]
[2018-09-11 07:00] VITALS: BP 167/95
[2018-09-11] MEDS: LEVOTHYROXINE 112 MCG TABLET PO SCH (07:35)
[2018-09-11] MEDS: APIXABAN 5 MG TABLET. PO SCH ×2 (07:35→19:59)
[2018-09-11] MEDS: FUROSEMIDE 40 MG TABLET PO SCH ×2 (07:35→17:00)
[2018-09-11] MEDS: SPIRONOLACTONE 25 MG TABLET PO SCH (07:35)
[2018-09-11] MEDS: DIVALPROEX 125 MG CAP.SPRINK PO SCH ×2 (07:35→17:00)
[2018-09-11] MEDS: SERTRALINE 25 MG TABLET. PO SCH (07:35)
[2018-09-11] MEDS: QUEtiapine 100 MG TABLET. PO SCH ×2 (07:36→20:00)
[2018-09-11] MEDS: LISINOPRIL 20 MG TABLET PO SCH (07:36)
[2018-09-11] MEDS: ASPIRIN 81 MG TAB.CHEW PO SCH (07:36)
[2018-09-11 10:16] LABS: BASO # 0.1 x10^3/uL (0.0-0.2); BASO % 1 % (0-3); EOS # 0.3 x10^3/uL (0.0-0.7); EOS % 4 % (0-3); HEMATOCRIT 38.7 % (39.0-53.0); HEMOGLOBIN 12.7 g/dL (13.0-17.5); LYMPH # 2.5 x10^3/uL (1.0-4.8); LYMPH % 25 % (24-48); MEAN CORPUSCULAR HEMOGLOBIN 29 pg (25-35); MEAN CORPUSCULAR HGB CONC 33 g/dL (31-37); MEAN CORPUSCULAR VOLUME 87 fL (79-100); MONO # 1.1 x10^3/uL (0.0-1.1); MONO % 11 % (0-9); NEUT % 60 % (31-73); PLATELET COUNT 416 x10^3/uL (140-400); RED BLOOD COUNT 4.44 x10^6/uL (4.30-5.70); RED CELL DISTRIBUTION WIDTH 17.4 % (11.5-14.5); WHITE BLOOD COUNT 10.1 x10^3/uL (4.0-11.0)
[2018-09-11 10:32] LABS: ALBUMIN 2.7 g/dL (3.4-5.0); ALBUMIN/GLOBULIN RATIO 0.5 (1.0-1.7); ALK PHOS 84 U/L (46-116); ALT (SGPT) 22 U/L (16-63); ANION GAP 10 (6-14); AST (SGOT) 18 U/L (15-37); BLOOD UREA NITROGEN 27 mg/dL (8-26); BUN/CREATININE RATIO 21 (6-20); CALCIUM 9.2 mg/dL (8.5-10.1); CARBON DIOXIDE 27 mmol/L (21-32); CHLORIDE 105 mmol/L (98-107); CREATININE 1.3 mg/dL (0.7-1.3); GFR 53.4; GLUCOSE 101 mg/dL (70-99); POTASSIUM 3.6 mmol/L (3.5-5.1); SODIUM 142 mmol/L (136-145); TOTAL BILIRUBIN 0.5 mg/dL (0.2-1.0); TOTAL PROTEIN 7.7 g/dL (6.4-8.2)
[2018-09-11 10:33] LABS: VAL ACID 14 mcg/mL (50-100)
[2018-09-11] MEDS: METOPROLOL TART IMMED RELEASE 25 MG TABLET PO SCH ×2 (15:00→20:03)
[2018-09-11 16:29] VITALS: BP 107/67
[2018-09-11] MEDS: traZODone 50 MG TABLET. PO SCH (19:59)
[2018-09-11] MEDS: MIRTAZAPINE 7.5 MG TABLET. PO SCH (20:00)
[2018-09-11] MEDS: ACETAMINOPHEN 325 MG TABLET PO PRN (23:30)
--- NOTE | 2018-09-11 23:50 | PDOC ---
Exam Note: Mike Note: Late entry for DOS 09/10/2018. Please also refer to the separate dictated note~for this date of service dictated separately.~Patient seen individually. Discussed the patient with Nursing staff reviewed the chart.~Reviewed interim history and current functioning. Reviewed vital signs,~Labs/ Radiology~and current medications noted below. Continue current treatment with the changes noted in the dictated addendum note Assessment: Vital Signs: Vital Signs Date Time Temp Pulse Resp B/P (MAP) Pulse Ox O2 Delivery O2 Flow Rate FiO2 09/11/18 20:03 88 109/65 09/11/18 16:29 97.5 20 96 09/08/18 15:53 Room Air I&O Intake and Output 09/11/18 06:59 Intake Total 720 ml Balance 720 ml Intake Oral 720 ml Labs: Laboratory Tests Test 09/11/18 09:50 White Blood Count 10.1 x10^3/uL (4.0-11.0) Red Blood Count 4.44 x10^6/uL (4.30-5.70) Hemoglobin 12.7 g/dL (13.0-17.5) L Hematocrit 38.7 % (39.0-53.0) L Mean Corpuscular Volume 87 fL (79-100) Mean Corpuscular Hemoglobin 29 pg (25-35) Mean Corpuscular Hemoglobin Concent 33 g/dL (31-37) Red Cell Distribution Width 17.4 % (11.5-14.5) H Platelet Count 416 x10^3/uL (140-400) H Neutrophils (%) (Auto) 60 % (31-73) Lymphocytes (%) (Auto) 25 % (24-48) Monocytes (%) (Auto) 11 % (0-9) H Eosinophils (%) (Auto) 4 % (0-3) H Basophils (%) (Auto) 1 % (0-3) Neutrophils # (Auto) 6.0 x10^3uL (1.8-7.7) Lymphocytes # (Auto) 2.5 x10^3/uL (1.0-4.8) Monocytes # (Auto) 1.1 x10^3/uL (0.0-1.1) Eosinophils # (Auto) 0.3 x10^3/uL (0.0-0.7) Basophils # (Auto) 0.1 x10^3/uL (0.0-0.2) Sodium Level 142 mmol/L (136-145) Potassium Level 3.6 mmol/L (3.5-5.1) Chloride Level 105 mmol/L (98-107) Carbon Dioxide Level 27 mmol/L (21-32) Anion Gap 10 (6-14) Blood Urea Nitrogen 27 mg/dL (8-26) H Creatinine 1.3 mg/dL (0.7-1.3) Estimated GFR (Cockcroft-Gault) 53.4 BUN/Creatinine Ratio 21 (6-20) H Glucose Level 101 mg/dL (70-99) H Calcium Level 9.2 mg/dL (8.5-10.1) Total Bilirubin 0.5 mg/dL (0.2-1.0) Aspartate Amino Transferase (AST) 18 U/L (15-37) Alanine Aminotransferase (ALT) 22 U/L (16-63) Alkaline Phosphatase 84 U/L (46-116) Total Protein 7.7 g/dL (6.4-8.2) Albumin 2.7 g/dL (3.4-5.0) L Albumin/Globulin Ratio 0.5 (1.0-1.7) L Valproic Acid Level 14 mcg/mL (50-100) L Valproic Acid Last Dose Date 09/10/18 Valproic Acid Last Dose Time 1700 Current Medications: Meds: Current Medications Acetaminophen (Tylenol) 650 mg PRN Q6HRS PRN PO PAIN / TEMP Last administered on 09/11/18at 23:30; Start 09/06/18 at 18:15 Multi-Ingredient Ointment (Analgesic [place]) 1 jose raul PRN QID PRN TP MUSCLE PAIN; Start 09/06/18 at 18:15 Al Hydroxide/Mg Hydroxide (Mylanta Plus Xs) 15 ml PRN AFTMEALHC PRN PO DYSPEPSIA; Start 09/06/18 at 18:15 Magnesium Hydroxide (Milk Of Magnesia) 2,400 mg PRN QHS PRN PO CONSTIPATION; Start 09/06/18 at 18:15 Levothyroxine Sodium (Synthroid) 112 mcg DAILYAC PO ; Start 09/07/18 at 07:30; Stop 09/07/18 at 07:30; Status DC Lisinopril (Prinivil) 20 mg DAILY PO Last administered on 09/11/18 07:36; Start 09/07/18 at 09:00 Apixaban (Eliquis) 5 mg BID PO Last administered on 09/11/18 19:59; Start 09/06/18 at 21:00 Aspirin (Children'S Aspirin) 81 mg DAILYWBKFT PO Last administered on 09/11/18 07:36; Start 09/07/18 at 08:00 Furosemide (Lasix) 40 mg BIDWMEALS PO Last administered on 09/11/18 17:00; Start 09/07/18 at 08:00 Quetiapine Fumarate (SEROquel) 100 mg BID PO Last administered on 09/11/18 20:00; Start 09/06/18 at 21:00 Spironolactone (Aldactone) 25 mg DAILY PO Last administered on 09/11/18 07:35; Start 09/07/18 at 09:00 Olanzapine (ZyPREXA ZYDIS) 2.5 mg PRN Q2HR PRN PO PSYCHOSIS Last administered on 09/11/18 23:30; Start 09/06/18 at 18:30 Levothyroxine Sodium (Synthroid) 112 mcg DAILYAC PO Last administered on 09/11/18 07:35; Start 09/07/18 at 06:00 Sertraline HCl (Zoloft) 25 mg DAILY PO Last administered on 09/11/18 07:35; Start 09/08/18 at 09:00; Stop 09/11/18 at 21:00; Status DC Sertraline HCl (Zoloft) 50 mg DAILY PO ; Start 09/12/18 at 09:00 Mirtazapine (Remeron) 7.5 mg QHS PO Last administered on 09/11/18 20:00; Start 09/07/18 at 21:00 Olanzapine (ZyPREXA ZYDIS) 5 mg 1X ONCE PO Last administered on 09/07/18 23:05; Start 09/07/18 at 23:00; Stop 09/07/18 at 23:02; Status DC Divalproex Sodium (Depakote Sprinkles) 125 mg 0900,1700 PO Last administered on 09/11/18 17:00; Start 09/08/18 at 17:00 Vitamin D (Vitamin D3) 50,000 unit WEEKLY PO Last administered on 09/10/18at 07:49; Start 09/10/18 at 09:00 Trazodone HCl (Desyrel) 50 mg QHS PO Last administered on 09/11/18at 19:59; Start 09/10/18 at 21:00 Trazodone HCl (Desyrel) 50 mg PRN QHS PRN PO INSOMNIA; Start 09/10/18 at 10:15 Metoprolol Tartrate (Lopressor) 25 mg BID PO Last administered on 09/11/18at 20:03; Start 09/11/18 at 15:00 Active Scripts Active Reported Seroquel (Quetiapine Fumarate) 100 Mg Tablet 100 Mg PO BID Levothyroxine Sodium 112 Mcg Tablet 112 Mcg PO DAILYAC Aspirin 81 Mg Tab.chew 81 Mg PO DAILY Spironolactone 25 Mg Tablet 25 Mg PO DAILY Lisinopril 20 Mg Tablet 20 Mg PO DAILY Furosemide 40 Mg Tablet 40 Mg PO BIDWMEALS Eliquis (Apixaban) 5 Mg Tablet 5 Mg PO BID I have reviewed the current psychotropics carefully including drug interactions. Risk benefit ratio favors no change other than as noted in my dictated progress note. 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
[2018-09-12 05:57] VITALS: BP 155/81
[2018-09-12] MEDS: LEVOTHYROXINE 112 MCG TABLET PO SCH (05:58)
[2018-09-12] MEDS: SPIRONOLACTONE 25 MG TABLET PO SCH (07:56)
[2018-09-12] MEDS: FUROSEMIDE 40 MG TABLET PO SCH ×2 (07:56→15:55)
[2018-09-12] MEDS: ASPIRIN 81 MG TAB.CHEW PO SCH (07:56)
[2018-09-12] MEDS: METOPROLOL TART IMMED RELEASE 25 MG TABLET PO SCH ×2 (07:57→19:24)
[2018-09-12] MEDS: LISINOPRIL 20 MG TABLET PO SCH (07:57)
[2018-09-12] MEDS: DIVALPROEX 125 MG CAP.SPRINK PO SCH ×2 (07:57→15:55)
[2018-09-12] MEDS: APIXABAN 5 MG TABLET. PO SCH ×2 (07:57→19:18)
[2018-09-12] MEDS: QUEtiapine 100 MG TABLET. PO SCH ×2 (07:57→19:18)
[2018-09-12] MEDS: SERTRALINE 50 MG TABLET. PO SCH (07:59)
[2018-09-12 16:35] VITALS: BP 93/58
[2018-09-12] MEDS: MIRTAZAPINE 7.5 MG TABLET. PO SCH (19:18)
[2018-09-12] MEDS: ACETAMINOPHEN 325 MG TABLET PO PRN (19:20)
[2018-09-12] MEDS: traZODone 50 MG TABLET. PO SCH (19:20)
[2018-09-12] MEDS: traZODone 50 MG TABLET. PO PRN (21:38)
--- NOTE | 2018-09-12 23:52 | PN ---
DATE: 09/11/2018 SUBJECTIVE: The patient was seen today, met with the staff, chart reviewed and also covering for Dr. Kerr. Staff reports that he is still confused. The patient is not sleeping well. Staff reports no falls since admission. The patient also has a history of alcohol abuse in the past. The patient did tend to get agitated easily. OBSERVATION: Vital signs: Temperature 97.5, blood pressure 107/67, pulse 92, respirations 20, and O2 sat 96%. The patient apparently is not sleeping well. His appetite is fair. MEDICATIONS: The patient's current medications include Zoloft 50 mg daily, trazodone 50 mg at night, Depakote 125 mg b.i.d., Zoloft 25 mg daily, mirtazapine 7.5 mg at night, Seroquel 100 mg b.i.d. The patient is not having any side effects. ASSESSMENT: Major neurocognitive disorder, most likely Alzheimer's and vascular. 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 PLAN: Continue with the current treatment. LENGTH OF STAY: Seven days. NELLIE PORTER MD DR: CHERRY/dayna JOB#: [id number] / [id number]
[2018-09-13] MEDS: LEVOTHYROXINE 112 MCG TABLET PO SCH (04:54)
[2018-09-13 05:45] VITALS: BP 127/76
[2018-09-13] MEDS: ASPIRIN 81 MG TAB.CHEW PO SCH (08:39)
[2018-09-13] MEDS: DIVALPROEX 125 MG CAP.SPRINK PO SCH ×2 (08:40→17:47)
[2018-09-13] MEDS: FUROSEMIDE 40 MG TABLET PO SCH ×2 (08:40→17:48)
[2018-09-13] MEDS: APIXABAN 5 MG TABLET. PO SCH ×2 (08:40→19:43)
[2018-09-13] MEDS: SPIRONOLACTONE 25 MG TABLET PO SCH (08:40)
[2018-09-13] MEDS: METOPROLOL TART IMMED RELEASE 25 MG TABLET PO SCH ×2 (08:41→19:42)
[2018-09-13] MEDS: LISINOPRIL 20 MG TABLET PO SCH (08:41)
[2018-09-13] MEDS: QUEtiapine 100 MG TABLET. PO SCH ×2 (08:42→19:43)
[2018-09-13] MEDS: SERTRALINE 50 MG TABLET. PO SCH (08:42)
--- NOTE | 2018-09-13 14:10 | PN ---
DATE: 09/12/2018 SUBJECTIVE: The patient was seen today, met with the staff, chart reviewed. The patient is still complaining of decreased sleep, increased confusion, withdrawn and the patient has a past history of alcoholism. OBSERVATION: Vital signs: Temperature 97.4, blood pressure 155/81, pulse 87, respirations 20, O2 sat 92%, slept about 5 hours last night. The patient's appetite is fair. The patient has problems with concentration and thinking. The patient has difficulty with concentration, also has short-term memory deficits. LABORATORY DATA: The patient's lab reviewed. MEDICATIONS: The patient's current medications include trazodone 50 mg at bedtime, also Zoloft 50 mg daily, Depakote 125 mg b.i.d., mirtazapine 7.5 mg at night, olanzapine 2.5 mg q 2 hours p.r.n. ASSESSMENT: Major neurocognitive disorder, multifactorial, Alzheimer's, vascular and alcohol-related. PLAN: To continue with the treatment. LENGTH OF STAY: 7-10 days. NELLIE PORTER MD DR: CHERRY/dayna JOB#: [id number] / [id number]
[2018-09-13 16:38] VITALS: BP 111/68
[2018-09-13] MEDS: MIRTAZAPINE 7.5 MG TABLET. PO SCH (19:42)
[2018-09-13] MEDS: traZODone 50 MG TABLET. PO SCH (19:44)
[2018-09-13] MEDS: ACETAMINOPHEN 325 MG TABLET PO PRN (21:44)
[2018-09-13] MEDS: traZODone 50 MG TABLET. PO PRN (21:45)
[2018-09-14 06:22] VITALS: BP 165/85
[2018-09-14] MEDS: SPIRONOLACTONE 25 MG TABLET PO SCH (08:17)
[2018-09-14] MEDS: LEVOTHYROXINE 112 MCG TABLET PO SCH (08:17)
[2018-09-14] MEDS: ASPIRIN 81 MG TAB.CHEW PO SCH (08:17)
[2018-09-14] MEDS: DIVALPROEX 125 MG CAP.SPRINK PO SCH ×2 (08:17→17:22)
[2018-09-14] MEDS: FUROSEMIDE 40 MG TABLET PO SCH ×2 (08:17→17:22)
[2018-09-14] MEDS: APIXABAN 5 MG TABLET. PO SCH ×2 (08:18→19:51)
[2018-09-14] MEDS: METOPROLOL TART IMMED RELEASE 25 MG TABLET PO SCH ×2 (08:18→19:51)
[2018-09-14] MEDS: LISINOPRIL 20 MG TABLET PO SCH (08:18)
[2018-09-14] MEDS: SERTRALINE 50 MG TABLET. PO SCH (08:19)
[2018-09-14] MEDS: QUEtiapine 100 MG TABLET. PO SCH ×2 (08:19→19:51)
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
[2018-09-14 16:38] VITALS: BP 158/86
[2018-09-14] MEDS: MIRTAZAPINE 7.5 MG TABLET. PO SCH (19:51)
[2018-09-14] MEDS: traZODone 50 MG TABLET. PO SCH (19:56)
--- NOTE | 2018-09-15 04:19 | PN ---
DATE: 09/14/2018 SUBJECTIVE: The patient was seen today, met with the staff, chart reviewed. Staff reports his behavior has improved. He has not received any p.r.n. medications today and is sleeping better. OBSERVATION: VITAL SIGNS: Temperature 96.9, blood pressure 165/85, pulse 88, respirations 18, O2 sat 98%, slept about 7 hours last night. The patient's appetite improved. MEDICATIONS: The patient's current medications include trazodone 50 mg at night, Zoloft 50 mg daily, Depakote 125 mg b.i.d., mirtazapine 7.5 mg at night, and olanzapine 2.5 mg q. 2-4 hours p.r.n. The patient is also taking Seroquel 100 mg twice a day. The patient is not having any side effects. ASSESSMENT: Major neurocognitive disorder, multifactorial including Alzheimer, vascular and alcohol induced. PLAN: Continue with the treatment. LENGTH OF STAY: 5-7 days. NELLIE PORTER MD DR: CHERRY/dayna JOB#: [id number] / [id number]
[2018-09-15] MEDS: LEVOTHYROXINE 112 MCG TABLET PO SCH (06:00)
[2018-09-15 06:07] VITALS: BP 130/81
[2018-09-15] MEDS: SPIRONOLACTONE 25 MG TABLET PO SCH (08:02)
[2018-09-15] MEDS: ASPIRIN 81 MG TAB.CHEW PO SCH (08:02)
[2018-09-15] MEDS: LISINOPRIL 20 MG TABLET PO SCH (08:02)
[2018-09-15] MEDS: SERTRALINE 50 MG TABLET. PO SCH (08:03)
[2018-09-15] MEDS: APIXABAN 5 MG TABLET. PO SCH ×2 (08:03→19:35)
[2018-09-15] MEDS: DIVALPROEX 125 MG CAP.SPRINK PO SCH ×2 (08:03→17:45)
[2018-09-15] MEDS: METOPROLOL TART IMMED RELEASE 25 MG TABLET PO SCH ×2 (08:04→19:36)
[2018-09-15] MEDS: QUEtiapine 100 MG TABLET. PO SCH ×2 (08:04→19:35)
[2018-09-15] MEDS: FUROSEMIDE 40 MG TABLET PO SCH ×2 (08:04→17:45)
[2018-09-15 16:03] VITALS: BP 106/69
[2018-09-15] MEDS: MIRTAZAPINE 7.5 MG TABLET. PO SCH (19:35)
[2018-09-15] MEDS: traZODone 50 MG TABLET. PO SCH (19:35)
--- NOTE | 2018-09-16 03:39 | PN ---
DATE: 09/15/2018 SUBJECTIVE: The patient was seen today, met with the staff, chart reviewed. The staff reports no major behavior problems today. Much calmer. OBSERVATION: Vital signs: Temperature 97.5, blood pressure 130/81, pulse 85, respiration 18, O2 sat 93%, and slept about 6 hours last night. CURRENT MEDICATIONS: The patient's current medications include trazodone 50 mg at night, Zoloft 50 mg daily, Depakote 125 mg b.i.d., mirtazapine 7.5 mg at night, and olanzapine 2.5 mg q. 2-4 hours p.r.n. The patient is also on Seroquel 100 mg b.i.d. The patient is not having any side effects to medications. ASSESSMENT: Major neurocognitive disorder, multifactorial including Alzheimer's, vascular and alcohol-induced. PLAN: Continue with the treatment. LENGTH OF STAY: 5-7 days. NELLIE PORTER MD DR: CHERRY/dayna JOB#: [id number] / [id number]
[2018-09-16 06:17] VITALS: BP 144/80
[2018-09-16] MEDS: LEVOTHYROXINE 112 MCG TABLET PO SCH (08:03)
[2018-09-16] MEDS: ASPIRIN 81 MG TAB.CHEW PO SCH (08:03)
[2018-09-16] MEDS: QUEtiapine 100 MG TABLET. PO SCH ×2 (08:04→19:54)
[2018-09-16] MEDS: METOPROLOL TART IMMED RELEASE 25 MG TABLET PO SCH ×2 (08:04→19:54)
[2018-09-16] MEDS: SERTRALINE 50 MG TABLET. PO SCH (08:04)
[2018-09-16] MEDS: LISINOPRIL 20 MG TABLET PO SCH (08:04)
[2018-09-16] MEDS: DIVALPROEX 125 MG CAP.SPRINK PO SCH ×2 (08:05→16:54)
[2018-09-16] MEDS: SPIRONOLACTONE 25 MG TABLET PO SCH (08:05)
[2018-09-16] MEDS: APIXABAN 5 MG TABLET. PO SCH ×2 (08:05→19:53)
[2018-09-16] MEDS: FUROSEMIDE 40 MG TABLET PO SCH ×2 (08:05→16:54)
[2018-09-16 10:04] LABS: BASO # 0.1 x10^3/uL (0.0-0.2); BASO % 1 % (0-3); EOS # 0.4 x10^3/uL (0.0-0.7); EOS % 6 % (0-3); HEMATOCRIT 37.4 % (39.0-53.0); HEMOGLOBIN 12.3 g/dL (13.0-17.5); LYMPH # 1.8 x10^3/uL (1.0-4.8); LYMPH % 27 % (24-48); MEAN CORPUSCULAR HEMOGLOBIN 29 pg (25-35); MEAN CORPUSCULAR HGB CONC 33 g/dL (31-37); MEAN CORPUSCULAR VOLUME 87 fL (79-100); MONO # 0.7 x10^3/uL (0.0-1.1); MONO % 11 % (0-9); NEUT # 3.6 x10^3uL (1.8-7.7); NEUT % 54 % (31-73); PLATELET COUNT 390 x10^3/uL (140-400); WHITE BLOOD COUNT 6.7 x10^3/uL (4.0-11.0)
[2018-09-16 10:11] LABS: ALBUMIN 2.8 g/dL (3.4-5.0); ALBUMIN/GLOBULIN RATIO 0.6 (1.0-1.7); CALCIUM 9.4 mg/dL (8.5-10.1); CREATININE 1.4 mg/dL (0.7-1.3); POTASSIUM 4.3 mmol/L (3.5-5.1); TOTAL BILIRUBIN 0.3 mg/dL (0.2-1.0); TOTAL PROTEIN 7.6 g/dL (6.4-8.2)
[2018-09-16 15:52] VITALS: BP 103/64
[2018-09-16] MEDS: MIRTAZAPINE 7.5 MG TABLET. PO SCH (19:53)
[2018-09-16] MEDS: traZODone 50 MG TABLET. PO SCH (19:54)
[2018-09-17] MEDS: traZODone 50 MG TABLET. PO PRN (00:10)
--- NOTE | 2018-09-17 00:28 | PN ---
DATE: 09/16/2018 SUBJECTIVE: The patient was seen today. I met with the staff, chart reviewed. The patient's behavior has improved. He is no longer threatening, not verbally abusive. The patient is participating in activities. OBSERVATION: VITAL SIGNS: Temperature 97.5, blood pressure 130/81, pulse 85, respirations 18, O2 sat 93%. Slept about 6-1/2 hours last night. The patient's appetite improved. MEDICATIONS: The patient's current medications include trazodone 50 mg at night, Zoloft 50 mg daily, Depakote 125 mg b.i.d., mirtazapine 7.5 mg at night, and olanzapine 2.5 mg q. 2-4 hours p.r.n. The patient is also on Seroquel 100 mg b.i.d. The patient is not having any side effects to medications. ASSESSMENT: Major neurocognitive disorder, multifactorial including Alzheimer's, vascular and alcohol-induced. PLAN: Continue with the treatment. LENGTH OF STAY: 5 days. NELLIE PORTER MD DR: CHERRY/dayna JOB#: [id number] / [id number]
[2018-09-17 05:59] VITALS: BP 152/86
[2018-09-17] MEDS: FUROSEMIDE 40 MG TABLET PO SCH ×2 (08:33→17:15)
[2018-09-17] MEDS: LEVOTHYROXINE 112 MCG TABLET PO SCH (08:33)
[2018-09-17] MEDS: ASPIRIN 81 MG TAB.CHEW PO SCH (08:33)
[2018-09-17] MEDS: DIVALPROEX 125 MG CAP.SPRINK PO SCH ×2 (08:34→17:15)
[2018-09-17] MEDS: APIXABAN 5 MG TABLET. PO SCH ×2 (08:34→19:44)
[2018-09-17] MEDS: METOPROLOL TART IMMED RELEASE 25 MG TABLET PO SCH ×2 (08:34→19:45)
[2018-09-17] MEDS: SPIRONOLACTONE 25 MG TABLET PO SCH (08:34)
[2018-09-17] MEDS: QUEtiapine 100 MG TABLET. PO SCH ×2 (08:35→19:44)
[2018-09-17] MEDS: SERTRALINE 50 MG TABLET. PO SCH (08:35)
[2018-09-17] MEDS: LISINOPRIL 20 MG TABLET PO SCH (08:35)
[2018-09-17] MEDS: CHOLECALCIFEROL (VITAMIN D3) 50,000 UNIT CAPSULE PO SCH (08:36)
[2018-09-17 15:48] VITALS: BP 118/73
[2018-09-17] MEDS: traZODone 50 MG TABLET. PO SCH (19:44)
[2018-09-17] MEDS: MIRTAZAPINE 7.5 MG TABLET. PO SCH (19:44)
[2018-09-18] MEDS: ACETAMINOPHEN 325 MG TABLET PO PRN (04:12)
[2018-09-18] MEDS: LEVOTHYROXINE 112 MCG TABLET PO SCH (05:32)
[2018-09-18 06:17] VITALS: BP 145/97
[2018-09-18] MEDS: ASPIRIN 81 MG TAB.CHEW PO SCH (08:40)
[2018-09-18] MEDS: SPIRONOLACTONE 25 MG TABLET PO SCH (08:41)
[2018-09-18] MEDS: FUROSEMIDE 40 MG TABLET PO SCH ×2 (08:41→16:46)
[2018-09-18] MEDS: DIVALPROEX 125 MG CAP.SPRINK PO SCH ×2 (08:41→16:46)
[2018-09-18] MEDS: APIXABAN 5 MG TABLET. PO SCH ×2 (08:41→19:56)
[2018-09-18] MEDS: METOPROLOL TART IMMED RELEASE 25 MG TABLET PO SCH ×2 (08:41→19:56)
[2018-09-18] MEDS: LISINOPRIL 20 MG TABLET PO SCH (08:42)
[2018-09-18] MEDS: QUEtiapine 100 MG TABLET. PO SCH ×2 (08:42→19:57)
[2018-09-18] MEDS: SERTRALINE 50 MG TABLET. PO SCH (08:42)
[2018-09-18 16:15] VITALS: BP 102/57
[2018-09-18] MEDS: MIRTAZAPINE 7.5 MG TABLET. PO SCH (19:56)
[2018-09-18] MEDS: traZODone 50 MG TABLET. PO SCH (19:56)
[2018-09-19 06:12] VITALS: BP 176/87
[2018-09-19 09:12] LABS: BASO # 0.1 x10^3/uL (0.0-0.2); BASO % 1 % (0-3); EOS # 0.4 x10^3/uL (0.0-0.7); EOS % 6 % (0-3); HEMATOCRIT 38.7 % (39.0-53.0); HEMOGLOBIN 12.7 g/dL (13.0-17.5); LYMPH # 2.2 x10^3/uL (1.0-4.8); LYMPH % 29 % (24-48); MEAN CORPUSCULAR HEMOGLOBIN 29 pg (25-35); MEAN CORPUSCULAR HGB CONC 33 g/dL (31-37); MEAN CORPUSCULAR VOLUME 87 fL (79-100); MONO # 0.8 x10^3/uL (0.0-1.1); MONO % 10 % (0-9); NEUT % 54 % (31-73); PLATELET COUNT 345 x10^3/uL (140-400); RED BLOOD COUNT 4.43 x10^6/uL (4.30-5.70); RED CELL DISTRIBUTION WIDTH 17.1 % (11.5-14.5); WHITE BLOOD COUNT 7.4 x10^3/uL (4.0-11.0)
[2018-09-19] MEDS: APIXABAN 5 MG TABLET. PO SCH ×2 (09:21→20:01)
[2018-09-19] MEDS: DIVALPROEX 125 MG CAP.SPRINK PO SCH ×2 (09:21→17:44)
[2018-09-19] MEDS: LEVOTHYROXINE 112 MCG TABLET PO SCH (09:21)
[2018-09-19] MEDS: FUROSEMIDE 40 MG TABLET PO SCH ×2 (09:21→17:44)
[2018-09-19] MEDS: SPIRONOLACTONE 25 MG TABLET PO SCH (09:21)
[2018-09-19] MEDS: ASPIRIN 81 MG TAB.CHEW PO SCH (09:21)
[2018-09-19] MEDS: METOPROLOL TART IMMED RELEASE 25 MG TABLET PO SCH ×2 (09:22→20:01)
[2018-09-19] MEDS: SERTRALINE 50 MG TABLET. PO SCH (09:22)
[2018-09-19] MEDS: LISINOPRIL 20 MG TABLET PO SCH (09:22)
[2018-09-19] MEDS: QUEtiapine 100 MG TABLET. PO SCH ×2 (09:22→20:01)
[2018-09-19 09:25] LABS: ALBUMIN 2.9 g/dL (3.4-5.0); ALBUMIN/GLOBULIN RATIO 0.6 (1.0-1.7); CALCIUM 9.1 mg/dL (8.5-10.1); CREATININE 1.4 mg/dL (0.7-1.3); POTASSIUM 3.9 mmol/L (3.5-5.1); TOTAL BILIRUBIN 0.4 mg/dL (0.2-1.0); TOTAL PROTEIN 7.7 g/dL (6.4-8.2)
[2018-09-19 16:45] VITALS: BP 119/73
[2018-09-19] MEDS: MIRTAZAPINE 7.5 MG TABLET. PO SCH (20:01)
[2018-09-19] MEDS: traZODone 50 MG TABLET. PO SCH (20:02)
--- NOTE | 2018-09-19 23:36 | PDOC ---
Exam Note: Mike Note: Please also refer to the separate dictated note~for this date of service dictated separately.~Patient seen individually. Discussed the patient with Nursing staff reviewed the chart.~Reviewed interim history and current functioning. Reviewed vital signs,~Labs/ Radiology~and current medications noted below. Continue current treatment with the changes noted in the dictated addendum note Assessment: Vital Signs: Vital Signs Date Time Temp Pulse Resp B/P (MAP) Pulse Ox O2 Delivery O2 Flow Rate FiO2 09/19/18 20:01 78 119/73 09/19/18 16:45 97.8 16 94 09/18/18 06:17 Room Air I&O Intake and Output 09/19/18 06:59 Intake Total 1560 ml Balance 1560 ml Intake Oral 1560 ml # Bowel Movements 1 Labs: Laboratory Tests Test 09/19/18 08:58 White Blood Count 7.4 x10^3/uL (4.0-11.0) Red Blood Count 4.43 x10^6/uL (4.30-5.70) Hemoglobin 12.7 g/dL (13.0-17.5) L Hematocrit 38.7 % (39.0-53.0) L Mean Corpuscular Volume 87 fL (79-100) Mean Corpuscular Hemoglobin 29 pg (25-35) Mean Corpuscular Hemoglobin Concent 33 g/dL (31-37) Red Cell Distribution Width 17.1 % (11.5-14.5) H Platelet Count 345 x10^3/uL (140-400) Neutrophils (%) (Auto) 54 % (31-73) Lymphocytes (%) (Auto) 29 % (24-48) Monocytes (%) (Auto) 10 % (0-9) H Eosinophils (%) (Auto) 6 % (0-3) H Basophils (%) (Auto) 1 % (0-3) Neutrophils # (Auto) 4.0 x10^3uL (1.8-7.7) Lymphocytes # (Auto) 2.2 x10^3/uL (1.0-4.8) Monocytes # (Auto) 0.8 x10^3/uL (0.0-1.1) Eosinophils # (Auto) 0.4 x10^3/uL (0.0-0.7) Basophils # (Auto) 0.1 x10^3/uL (0.0-0.2) Sodium Level 141 mmol/L (136-145) Potassium Level 3.9 mmol/L (3.5-5.1) Chloride Level 104 mmol/L (98-107) Carbon Dioxide Level 32 mmol/L (21-32) Anion Gap 5 (6-14) L Blood Urea Nitrogen 27 mg/dL (8-26) H Creatinine 1.4 mg/dL (0.7-1.3) H Estimated GFR (Cockcroft-Gault) 49.0 BUN/Creatinine Ratio 19 (6-20) Glucose Level 105 mg/dL (70-99) H Calcium Level 9.1 mg/dL (8.5-10.1) Total Bilirubin 0.4 mg/dL (0.2-1.0) Aspartate Amino Transferase (AST) 19 U/L (15-37) Alanine Aminotransferase (ALT) 31 U/L (16-63) Alkaline Phosphatase 86 U/L (46-116) Total Protein 7.7 g/dL (6.4-8.2) Albumin 2.9 g/dL (3.4-5.0) L Albumin/Globulin Ratio 0.6 (1.0-1.7) L Current Medications: Meds: Current Medications Acetaminophen (Tylenol) 650 mg PRN Q6HRS PRN PO PAIN / TEMP Last administered on 09/18/18at 04:12; Start 09/06/18 at 18:15 Multi-Ingredient Ointment (Analgesic [place]) 1 jose raul PRN QID PRN TP MUSCLE PAIN; Start 09/06/18 at 18:15 Al Hydroxide/Mg Hydroxide (Mylanta Plus Xs) 15 ml PRN AFTMEALHC PRN PO DYSPEPSIA; Start 09/06/18 at 18:15 Magnesium Hydroxide (Milk Of Magnesia) 2,400 mg PRN QHS PRN PO CONSTIPATION; Start 09/06/18 at 18:15 Levothyroxine Sodium (Synthroid) 112 mcg DAILYAC PO ; Start 09/07/18 at 07:30; Stop 09/07/18 at 07:30; Status DC Lisinopril (Prinivil) 20 mg DAILY PO Last administered on 09/19/18at 09:22; Start 09/07/18 at 09:00 Apixaban (Eliquis) 5 mg BID PO Last administered on 09/19/18 20:01; Start 09/06/18 at 21:00 Aspirin (Children'S Aspirin) 81 mg DAILYWBKFT PO Last administered on 09/19/18 09:21; Start 09/07/18 at 08:00 Furosemide (Lasix) 40 mg BIDWMEALS PO Last administered on 09/19/18 17:44; Start 09/07/18 at 08:00 Quetiapine Fumarate (SEROquel) 100 mg BID PO Last administered on 09/19/18 20:01; Start 09/06/18 at 21:00 Spironolactone (Aldactone) 25 mg DAILY PO Last administered on 09/19/18 09:21; Start 09/07/18 at 09:00 Olanzapine (ZyPREXA ZYDIS) 2.5 mg PRN Q2HR PRN PO PSYCHOSIS Last administered on 09/19/18 10:07; Start 09/06/18 at 18:30 Levothyroxine Sodium (Synthroid) 112 mcg DAILYAC PO Last administered on 09/19/18 09:21; Start 09/07/18 at 06:00 Sertraline HCl (Zoloft) 25 mg DAILY PO Last administered on 09/11/18at 07:35; Start 09/08/18 at 09:00; Stop 09/11/18 at 21:00; Status DC Sertraline HCl (Zoloft) 50 mg DAILY PO Last administered on 09/19/18 09:22; Start 09/12/18 at 09:00; Stop 09/19/18 at 10:30; Status DC Mirtazapine (Remeron) 7.5 mg QHS PO Last administered on 09/19/18 20:01; Start 09/07/18 at 21:00 Olanzapine (ZyPREXA ZYDIS) 5 mg 1X ONCE PO Last administered on 09/07/18 23:05; Start 09/07/18 at 23:00; Stop 09/07/18 at 23:02; Status DC Divalproex Sodium (Depakote Sprinkles) 125 mg 0900,1700 PO Last administered on 09/19/18 17:44; Start 09/08/18 at 17:00 Vitamin D (Vitamin D3) 50,000 unit WEEKLY PO Last administered on 09/17/18at 08:36; Start 09/10/18 at 09:00 Trazodone HCl (Desyrel) 50 mg QHS PO Last administered on 09/19/18at 20:02; Start 09/10/18 at 21:00 Trazodone HCl (Desyrel) 50 mg PRN QHS PRN PO INSOMNIA Last administered on 09/17/18at 00:10; Start 09/10/18 at 10:15 Metoprolol Tartrate (Lopressor) 25 mg BID PO Last administered on 09/19/18at 20:01; Start 09/11/18 at 15:00 Sertraline HCl (Zoloft) 75 mg DAILY PO ; Start 09/20/18 at 09:00 Active Scripts Active Reported Seroquel (Quetiapine Fumarate) 100 Mg Tablet 100 Mg PO BID Levothyroxine Sodium 112 Mcg Tablet 112 Mcg PO DAILYAC Aspirin 81 Mg Tab.chew 81 Mg PO DAILY Spironolactone 25 Mg Tablet 25 Mg PO DAILY Lisinopril 20 Mg Tablet 20 Mg PO DAILY Furosemide 40 Mg Tablet 40 Mg PO BIDWMEALS Eliquis (Apixaban) 5 Mg Tablet 5 Mg PO BID I have reviewed the current psychotropics carefully including drug interactions. Risk benefit ratio favors no change other than as noted in my dictated progress note. 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
[2018-09-20 06:38] VITALS: BP 153/70
[2018-09-20] MEDS: APIXABAN 5 MG TABLET. PO SCH ×2 (08:23→20:00)
[2018-09-20] MEDS: SPIRONOLACTONE 25 MG TABLET PO SCH (08:23)
[2018-09-20] MEDS: DIVALPROEX 125 MG CAP.SPRINK PO SCH ×2 (08:23→17:33)
[2018-09-20] MEDS: METOPROLOL TART IMMED RELEASE 25 MG TABLET PO SCH ×2 (08:23→20:00)
[2018-09-20] MEDS: ASPIRIN 81 MG TAB.CHEW PO SCH (08:23)
[2018-09-20] MEDS: FUROSEMIDE 40 MG TABLET PO SCH ×2 (08:23→17:33)
[2018-09-20] MEDS: LEVOTHYROXINE 112 MCG TABLET PO SCH (08:23)
[2018-09-20] MEDS: QUEtiapine 100 MG TABLET. PO SCH ×2 (08:24→20:00)
[2018-09-20] MEDS: LISINOPRIL 20 MG TABLET PO SCH (08:24)
[2018-09-20] MEDS: SERTRALINE 50 MG TABLET. PO SCH (08:26)
[2018-09-20 16:25] VITALS: BP 100/63
[2018-09-20] MEDS: MIRTAZAPINE 7.5 MG TABLET. PO SCH (20:00)
[2018-09-20] MEDS: traZODone 50 MG TABLET. PO SCH (20:01)
--- NOTE | 2018-09-20 20:03 | PDOC ---
Exam Note: Mike Note: Admission Date: September 06, 2018 at 17:30 * A recertification for continued Inpatient Psychiatric Admission must be done on Day 12, Day 18 and Day 30. Please also refer to the separate dictated note~for this date of service dictated separately.~Patient seen individually. Discussed the patient with Nursing staff reviewed the chart.~Reviewed interim history and current functioning. Reviewed vital signs,~Labs/ Radiology~and current medications noted below. Continue current treatment with the changes noted in the dictated addendum note Assessment: Vital Signs: Vital Signs Date Time Temp Pulse Resp B/P (MAP) Pulse Ox O2 Delivery O2 Flow Rate FiO2 09/20/18 20:00 79 100/63 09/20/18 16:25 97.6 16 96 09/18/18 06:17 Room Air I&O Intake and Output 09/20/18 07:00 Intake Total 1200 ml Balance 1200 ml Intake Oral 1200 ml Current Medications: Meds: Current Medications Acetaminophen (Tylenol) 650 mg PRN Q6HRS PRN PO PAIN / TEMP Last administered on 09/18/18at 04:12; Start 09/06/18 at 18:15 Multi-Ingredient Ointment (Analgesic [place]) 1 jose raul PRN QID PRN TP MUSCLE PAIN; Start 09/06/18 at 18:15 Al Hydroxide/Mg Hydroxide (Mylanta Plus Xs) 15 ml PRN AFTMEALHC PRN PO DYSPEPSIA; Start 09/06/18 at 18:15 Magnesium Hydroxide (Milk Of Magnesia) 2,400 mg PRN QHS PRN PO CONSTIPATION; Start 09/06/18 at 18:15 Levothyroxine Sodium (Synthroid) 112 mcg DAILYAC PO ; Start 09/07/18 at 07:30; Stop 09/07/18 at 07:30; Status DC Lisinopril (Prinivil) 20 mg DAILY PO Last administered on 09/20/18at 08:24; Start 09/07/18 at 09:00 Apixaban (Eliquis) 5 mg BID PO Last administered on 09/20/18at 20:00; Start 09/06/18 at 21:00 Aspirin (Children'S Aspirin) 81 mg DAILYWBKFT PO Last administered on 09/20/18at 08:23; Start 09/07/18 at 08:00 Furosemide (Lasix) 40 mg BIDWMEALS PO Last administered on 09/20/18 17:33; Start 09/07/18 at 08:00 Quetiapine Fumarate (SEROquel) 100 mg BID PO Last administered on 09/20/18 20:00; Start 09/06/18 at 21:00 Spironolactone (Aldactone) 25 mg DAILY PO Last administered on 09/20/18 08:23; Start 09/07/18 at 09:00 Olanzapine (ZyPREXA ZYDIS) 2.5 mg PRN Q2HR PRN PO PSYCHOSIS Last administered on 09/19/18 10:07; Start 09/06/18 at 18:30 Levothyroxine Sodium (Synthroid) 112 mcg DAILYAC PO Last administered on 09/20/18 08:23; Start 09/07/18 at 06:00 Sertraline HCl (Zoloft) 25 mg DAILY PO Last administered on 09/11/18at 07:35; Start 09/08/18 at 09:00; Stop 09/11/18 at 21:00; Status DC Sertraline HCl (Zoloft) 50 mg DAILY PO Last administered on 09/19/18 09:22; Start 09/12/18 at 09:00; Stop 09/19/18 at 10:30; Status DC Mirtazapine (Remeron) 7.5 mg QHS PO Last administered on 09/20/18 20:00; Start 09/07/18 at 21:00 Olanzapine (ZyPREXA ZYDIS) 5 mg 1X ONCE PO Last administered on 09/07/18 23:05; Start 09/07/18 at 23:00; Stop 09/07/18 at 23:02; Status DC Divalproex Sodium (Depakote Sprinkles) 125 mg 0900,1700 PO Last administered on 09/20/18 17:33; Start 09/08/18 at 17:00 Vitamin D (Vitamin D3) 50,000 unit WEEKLY PO Last administered on 09/17/18at 08:36; Start 09/10/18 at 09:00 Trazodone HCl (Desyrel) 50 mg QHS PO Last administered on 09/20/18 20:01; Start 09/10/18 at 21:00 Trazodone HCl (Desyrel) 50 mg PRN QHS PRN PO INSOMNIA Last administered on 09/17/18at 00:10; Start 09/10/18 at 10:15 Metoprolol Tartrate (Lopressor) 25 mg BID PO Last administered on 09/20/18at 20:00; Start 09/11/18 at 15:00 Sertraline HCl (Zoloft) 75 mg DAILY PO Last administered on 09/20/18at 08:26; Start 09/20/18 at 09:00 Active Scripts Active Reported Seroquel (Quetiapine Fumarate) 100 Mg Tablet 100 Mg PO BID Levothyroxine Sodium 112 Mcg Tablet 112 Mcg PO DAILYAC Aspirin 81 Mg Tab.chew 81 Mg PO DAILY Spironolactone 25 Mg Tablet 25 Mg PO DAILY Lisinopril 20 Mg Tablet 20 Mg PO DAILY Furosemide 40 Mg Tablet 40 Mg PO BIDWMEALS Eliquis (Apixaban) 5 Mg Tablet 5 Mg PO BID I have reviewed the current psychotropics carefully including drug interactions. Risk benefit ratio favors no change other than as noted in my dictated progress note. 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
--- NOTE | 2018-09-20 21:26 | PN ---
DATE: 09/19/2018 PSYCHIATRIC PROGRESS NOTE This late entry 09/19/2018 covers elements not covered in my initial note. SUBJECTIVE: I met with the patient on the morning of 09/19/2018. The patient slept 6-3/4 hours previous night. Also reviewed information from Dr. Osman, who covered for me over the past 1 week. Overall, the patient has been exit seeking at times, not aggressive, had a better day. REVIEW OF SYSTEMS: No CV, , pulmonary, eye, ENT system symptoms on review. Reliability poor. MENTAL STATUS EXAM: Oriented to himself. Insight, judgment, recent and remote memory, attention, concentration, fund of knowledge poor, consistent with his diagnosis. IMPRESSION: Major neurocognitive disorder, Alzheimer, vascular with delusion, depression, behavioral disturbance; anxiety disorder, unspecified; impulse control disorder, unspecified. PLAN: Increase Zoloft from 50 mg a day to 75 mg a day. Maintain Depakote, Seroquel along with Zyprexa p.r.n., Remeron and trazodone p.r.n. for now. MAN Aaron LIM MD DR: JUDITH/dayna JOB#: [id number] / [id number]
[2018-09-21 06:25] VITALS: BP 165/85
[2018-09-21] MEDS: LEVOTHYROXINE 112 MCG TABLET PO SCH (08:47)
[2018-09-21] MEDS: METOPROLOL TART IMMED RELEASE 25 MG TABLET PO SCH ×2 (08:47→19:15)
[2018-09-21] MEDS: ASPIRIN 81 MG TAB.CHEW PO SCH (08:48)
[2018-09-21] MEDS: APIXABAN 5 MG TABLET. PO SCH ×2 (08:48→19:15)
[2018-09-21] MEDS: SPIRONOLACTONE 25 MG TABLET PO SCH (08:48)
[2018-09-21] MEDS: LISINOPRIL 20 MG TABLET PO SCH (08:48)
[2018-09-21] MEDS: DIVALPROEX 125 MG CAP.SPRINK PO SCH ×2 (08:48→17:24)
[2018-09-21] MEDS: SERTRALINE 50 MG TABLET. PO SCH (08:48)
[2018-09-21] MEDS: FUROSEMIDE 40 MG TABLET PO SCH ×2 (08:48→17:24)
[2018-09-21] MEDS: QUEtiapine 100 MG TABLET. PO SCH ×2 (08:48→19:15)
[2018-09-21 16:12] VITALS: BP 112/72
[2018-09-21] MEDS: MIRTAZAPINE 7.5 MG TABLET. PO SCH (19:15)
[2018-09-21] MEDS: traZODone 50 MG TABLET. PO SCH (19:15)
[2018-09-21] MEDS: ACETAMINOPHEN 325 MG TABLET PO PRN (19:22)
--- NOTE | 2018-09-21 21:10 | PN ---
DATE: 09/20/2018 PSYCHIATRIC PROGRESS NOTE This late entry 09/20/2018 covers elements not covered in my initial note. SUBJECTIVE: I met with the patient in the evening of 09/20/2018. The patient slept 5 hours previous night. He remains confused, has had a good day and a good previous night. Redirects better. REVIEW OF SYSTEMS: No CV, , pulmonary, eye, ENT system symptoms on review. Reliability poor. MENTAL STATUS EXAM: Oriented to himself. Insight, judgment, recent and remote memory, attention, concentration, fund of knowledge poor, consistent with his diagnosis mentioned in my initial note. PLAN: No change from initial note. MAN Aaron LIM MD DR: JUDITH/dayna JOB#: [id number] / [id number]
--- NOTE | 2018-09-21 22:09 | PDOC ---
Exam Note: Mike Note: Please also refer to the separate dictated note~for this date of service dictated separately.~Patient seen individually. Discussed the patient with Nursing staff reviewed the chart.~Reviewed interim history and current functioning. Reviewed vital signs,~Labs/ Radiology~and current medications noted below. Continue current treatment with the changes noted in the dictated addendum note Assessment: Vital Signs: Vital Signs Date Time Temp Pulse Resp B/P (MAP) Pulse Ox O2 Delivery O2 Flow Rate FiO2 09/21/18 19:15 94 112/72 09/21/18 16:12 97.6 18 96 09/18/18 06:17 Room Air I&O Intake and Output 09/21/18 07:00 Intake Total 1800 ml Balance 1800 ml Intake Oral 1800 ml Current Medications: Meds: Current Medications Acetaminophen (Tylenol) 650 mg PRN Q6HRS PRN PO PAIN / TEMP Last administered on 09/21/18at 19:22; Start 09/06/18 at 18:15 Multi-Ingredient Ointment (Analgesic [place]) 1 jose raul PRN QID PRN TP MUSCLE PAIN; Start 09/06/18 at 18:15 Al Hydroxide/Mg Hydroxide (Mylanta Plus Xs) 15 ml PRN AFTMEALHC PRN PO DYSPEPSIA; Start 09/06/18 at 18:15 Magnesium Hydroxide (Milk Of Magnesia) 2,400 mg PRN QHS PRN PO CONSTIPATION; Start 09/06/18 at 18:15 Levothyroxine Sodium (Synthroid) 112 mcg DAILYAC PO ; Start 09/07/18 at 07:30; Stop 09/07/18 at 07:30; Status DC Lisinopril (Prinivil) 20 mg DAILY PO Last administered on 09/21/18at 08:48; Start 09/07/18 at 09:00 Apixaban (Eliquis) 5 mg BID PO Last administered on 09/21/18at 19:15; Start 09/06/18 at 21:00 Aspirin (Children'S Aspirin) 81 mg DAILYWBKFT PO Last administered on 09/21/18at 08:48; Start 09/07/18 at 08:00 Furosemide (Lasix) 40 mg BIDWMEALS PO Last administered on 09/21/18at 17:24; Start 09/07/18 at 08:00 Quetiapine Fumarate (SEROquel) 100 mg BID PO Last administered on 09/21/18 19:15; Start 09/06/18 at 21:00 Spironolactone (Aldactone) 25 mg DAILY PO Last administered on 09/21/18 08:48; Start 09/07/18 at 09:00 Olanzapine (ZyPREXA ZYDIS) 2.5 mg PRN Q2HR PRN PO PSYCHOSIS Last administered on 09/19/18 10:07; Start 09/06/18 at 18:30 Levothyroxine Sodium (Synthroid) 112 mcg DAILYAC PO Last administered on 09/21/18 08:47; Start 09/07/18 at 06:00 Sertraline HCl (Zoloft) 25 mg DAILY PO Last administered on 09/11/18 07:35; Start 09/08/18 at 09:00; Stop 09/11/18 at 21:00; Status DC Sertraline HCl (Zoloft) 50 mg DAILY PO Last administered on 09/19/18 09:22; Start 09/12/18 at 09:00; Stop 09/19/18 at 10:30; Status DC Mirtazapine (Remeron) 7.5 mg QHS PO Last administered on 09/21/18 19:15; Start 09/07/18 at 21:00 Olanzapine (ZyPREXA ZYDIS) 5 mg 1X ONCE PO Last administered on 09/07/18 23:05; Start 09/07/18 at 23:00; Stop 09/07/18 at 23:02; Status DC Divalproex Sodium (Depakote Sprinkles) 125 mg 0900,1700 PO Last administered on 09/21/18 17:24; Start 09/08/18 at 17:00 Vitamin D (Vitamin D3) 50,000 unit WEEKLY PO Last administered on 09/17/18 08:36; Start 09/10/18 at 09:00 Trazodone HCl (Desyrel) 50 mg QHS PO Last administered on 09/21/18 19:15; Start 09/10/18 at 21:00 Trazodone HCl (Desyrel) 50 mg PRN QHS PRN PO INSOMNIA Last administered on 09/17/18 00:10; Start 09/10/18 at 10:15 Metoprolol Tartrate (Lopressor) 25 mg BID PO Last administered on 09/21/18at 19:15; Start 09/11/18 at 15:00 Sertraline HCl (Zoloft) 75 mg DAILY PO Last administered on 09/21/18at 08:48; Start 09/20/18 at 09:00 Active Scripts Active Reported Seroquel (Quetiapine Fumarate) 100 Mg Tablet 100 Mg PO BID Levothyroxine Sodium 112 Mcg Tablet 112 Mcg PO DAILYAC Aspirin 81 Mg Tab.chew 81 Mg PO DAILY Spironolactone 25 Mg Tablet 25 Mg PO DAILY Lisinopril 20 Mg Tablet 20 Mg PO DAILY Furosemide 40 Mg Tablet 40 Mg PO BIDWMEALS Eliquis (Apixaban) 5 Mg Tablet 5 Mg PO BID I have reviewed the current psychotropics carefully including drug interactions. Risk benefit ratio favors no change other than as noted in my dictated progress note. 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
[2018-09-22 05:52] VITALS: BP 152/85
[2018-09-22] MEDS: LEVOTHYROXINE 112 MCG TABLET PO SCH (06:04)
[2018-09-22] MEDS: QUEtiapine 100 MG TABLET. PO SCH ×2 (08:30→20:47)
[2018-09-22] MEDS: DIVALPROEX 125 MG CAP.SPRINK PO SCH ×2 (08:30→17:39)
[2018-09-22] MEDS: SPIRONOLACTONE 25 MG TABLET PO SCH (08:30)
[2018-09-22] MEDS: ASPIRIN 81 MG TAB.CHEW PO SCH (08:30)
[2018-09-22] MEDS: LISINOPRIL 20 MG TABLET PO SCH (08:30)
[2018-09-22] MEDS: APIXABAN 5 MG TABLET. PO SCH ×2 (08:31→20:43)
[2018-09-22] MEDS: SERTRALINE 50 MG TABLET. PO SCH (08:31)
[2018-09-22] MEDS: FUROSEMIDE 40 MG TABLET PO SCH ×2 (08:31→17:39)
[2018-09-22] MEDS: METOPROLOL TART IMMED RELEASE 25 MG TABLET PO SCH ×2 (08:32→20:47)
[2018-09-22 15:41] VITALS: BP 104/63
[2018-09-22] MEDS: traZODone 50 MG TABLET. PO SCH (20:43)
[2018-09-22] MEDS: MIRTAZAPINE 7.5 MG TABLET. PO SCH (20:47)
--- NOTE | 2018-09-22 22:34 | PDOC ---
Exam Note: Mike Note: Please also refer to the separate dictated note~for this date of service dictated separately.~Patient seen individually. Discussed the patient with Nursing staff reviewed the chart.~Reviewed interim history and current functioning. Reviewed vital signs,~Labs/ Radiology~and current medications noted below. Continue current treatment with the changes noted in the dictated addendum note Assessment: Vital Signs: Vital Signs Date Time Temp Pulse Resp B/P (MAP) Pulse Ox O2 Delivery O2 Flow Rate FiO2 09/22/18 20:47 94 128/79 09/22/18 15:41 98.3 18 95 09/18/18 06:17 Room Air I&O Intake and Output 09/22/18 06:59 Intake Total 960 ml Balance 960 ml Intake Oral 960 ml # Voids 1 Current Medications: Meds: Current Medications Acetaminophen (Tylenol) 650 mg PRN Q6HRS PRN PO PAIN / TEMP Last administered on 09/21/18at 19:22; Start 09/06/18 at 18:15 Multi-Ingredient Ointment (Analgesic [place]) 1 jose raul PRN QID PRN TP MUSCLE PAIN; Start 09/06/18 at 18:15 Al Hydroxide/Mg Hydroxide (Mylanta Plus Xs) 15 ml PRN AFTMEALHC PRN PO DYSPEPS [place]; Start 09/06/18 at 18:15 Magnesium Hydroxide (Milk Of Magnesia) 2,400 mg PRN QHS PRN PO CONSTIPATION; Start 09/06/18 at 18:15 Levothyroxine Sodium (Synthroid) 112 mcg DAILYAC PO ; Start 09/07/18 at 07:30; Stop 09/07/18 at 07:30; Status DC Lisinopril (Prinivil) 20 mg DAILY PO Last administered on 09/22/18at 08:30; Start 09/07/18 at 09:00 Apixaban (Eliquis) 5 mg BID PO Last administered on 09/22/18at 20:43; Start 09/06/18 at 21:00 Aspirin (Children'S Aspirin) 81 mg DAILYWBKFT PO Last administered on 09/22/18at 08:30; Start 09/07/18 at 08:00 Furosemide (Lasix) 40 mg BIDWMEALS PO Last administered on 09/22/18at 17:39; Start 09/07/18 at 08:00 Quetiapine Fumarate (SEROquel) 100 mg BID PO Last administered on 09/22/18 20:47; Start 09/06/18 at 21:00 Spironolactone (Aldactone) 25 mg DAILY PO Last administered on 09/22/18 08:30; Start 09/07/18 at 09:00 Olanzapine (ZyPREXA ZYDIS) 2.5 mg PRN Q2HR PRN PO PSYCHOSIS Last administered on 09/19/18 10:07; Start 09/06/18 at 18:30 Levothyroxine Sodium (Synthroid) 112 mcg DAILYAC PO Last administered on 09/21/18 08:47; Start 09/07/18 at 06:00; Stop 09/22/18 at 00:51; Status DC Sertraline HCl (Zoloft) 25 mg DAILY PO Last administered on 09/11/18 07:35; Start 09/08/18 at 09:00; Stop 09/11/18 at 21:00; Status DC Sertraline HCl (Zoloft) 50 mg DAILY PO Last administered on 09/19/18 09:22; Start 09/12/18 at 09:00; Stop 09/19/18 at 10:30; Status DC Mirtazapine (Remeron) 7.5 mg QHS PO Last administered on 09/22/18 20:47; Start 09/07/18 at 21:00 Olanzapine (ZyPREXA ZYDIS) 5 mg 1X ONCE PO Last administered on 09/07/18at 23:05; Start 09/07/18 at 23:00; Stop 09/07/18 at 23:02; Status DC Divalproex Sodium (Depakote Sprinkles) 125 mg 0900,1700 PO Last administered on 09/22/18 17:39; Start 09/08/18 at 17:00 Vitamin D (Vitamin D3) 50,000 unit WEEKLY PO Last administered on 09/17/18 08:36; Start 09/10/18 at 09:00 Trazodone HCl (Desyrel) 50 mg QHS PO Last administered on 09/22/18at 20:43; Start 09/10/18 at 21:00 Trazodone HCl (Desyrel) 50 mg PRN QHS PRN PO INSOMNIA Last administered on 09/17at 00:10; Start 09/10/18 at 10:15 Metoprolol Tartrate (Lopressor) 25 mg BID PO Last administered on 09/22/18at 20:47; Start 09/11/18 at 15:00 Sertraline HCl (Zoloft) 75 mg DAILY PO Last administered on 09/22/18at 08:31; Start 09/20/18 at 09:00 Levothyroxine Sodium (Synthroid) 112 mcg DAILY06 PO Last administered on 09/22/18at 06:04; Start 09/22/18 at 06:00 Active Scripts Active Reported Seroquel (Quetiapine Fumarate) 100 Mg Tablet 100 Mg PO BID Levothyroxine Sodium 112 Mcg Tablet 112 Mcg PO DAILYAC Aspirin 81 Mg Tab.chew 81 Mg PO DAILY Spironolactone 25 Mg Tablet 25 Mg PO DAILY Lisinopril 20 Mg Tablet 20 Mg PO DAILY Furosemide 40 Mg Tablet 40 Mg PO BIDWMEALS Eliquis (Apixaban) 5 Mg Tablet 5 Mg PO BID I have reviewed the current psychotropics carefully including drug interactions. Risk benefit ratio favors no change other than as noted in my dictated progress note. 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
[2018-09-23] MEDS: LEVOTHYROXINE 112 MCG TABLET PO SCH (05:55)
[2018-09-23 06:04] VITALS: BP 134/82
[2018-09-23] MEDS: SPIRONOLACTONE 25 MG TABLET PO SCH (08:05)
[2018-09-23] MEDS: SERTRALINE 50 MG TABLET. PO SCH (08:05)
[2018-09-23] MEDS: APIXABAN 5 MG TABLET. PO SCH ×2 (08:06→19:38)
[2018-09-23] MEDS: METOPROLOL TART IMMED RELEASE 25 MG TABLET PO SCH ×2 (08:06→19:45)
[2018-09-23] MEDS: DIVALPROEX 125 MG CAP.SPRINK PO SCH ×2 (08:06→17:21)
[2018-09-23] MEDS: QUEtiapine 100 MG TABLET. PO SCH ×2 (08:06→19:39)
[2018-09-23] MEDS: ASPIRIN 81 MG TAB.CHEW PO SCH (08:06)
[2018-09-23] MEDS: LISINOPRIL 20 MG TABLET PO SCH (08:06)
[2018-09-23] MEDS: FUROSEMIDE 40 MG TABLET PO SCH ×2 (08:06→17:21)
[2018-09-23 16:04] VITALS: BP 92/58
--- NOTE | 2018-09-23 19:35 | PN ---
DATE: 09/21/2018 PSYCHIATRIC PROGRESS NOTE This late entry 09/21/2018 covers elements not covered in my initial note. SUBJECTIVE: I met with the patient in the evening of 09/21/2018. The patient slept 5-3/4 hours previous night. He remains confused, but not aggressive, but still exit seeking, wandering the unit, following me around, wanting an exit door. REVIEW OF SYSTEMS: No CV, , pulmonary, eye, ENT system symptoms on review. Reliability poor. MENTAL STATUS EXAM: Oriented to himself. Insight, judgment, recent and remote memory, attention, concentration, fund of knowledge poor, consistent with his diagnosis mentioned in my initial note. PLAN: No change from initial note. MAN Aaron LIM MD DR: JUDITH/dayna JOB#: [id number] / [id number]
[2018-09-23] MEDS: MIRTAZAPINE 7.5 MG TABLET. PO SCH (19:38)
[2018-09-23] MEDS: traZODone 50 MG TABLET. PO SCH (19:39)
--- NOTE | 2018-09-23 20:54 | PN ---
DATE: 09/22/2018 PSYCHIATRIC PROGRESS NOTE This late entry 09/22/2018 covers elements not covered in my initial note. SUBJECTIVE: I met with the patient in the evening of 09/22/2018 staffed at a treatment team meeting with the entire team in the morning. The patient slept 7-1/4 hours previous night. He has been confused, wandering, but redirects. He is exit seeking, but less so than before. He followed me around the unit after I had met with him looking for an exit door. REVIEW OF SYSTEMS: No CV, , pulmonary, eye, ENT system symptoms on review. Reliability poor. MENTAL STATUS EXAM: Oriented to himself. Insight, judgment, recent and remote memory, attention, concentration, fund of knowledge poor, consistent with his diagnosis mentioned in my initial note. PLAN: No change from initial note. MAN Aaron LIM MD DR: JUDITH/dayna JOB#: [id number] / [id number]
--- NOTE | 2018-09-23 22:41 | PDOC ---
Exam Note: Mike Note: Please also refer to the separate dictated note~for this date of service dictated separately.~Patient seen individually. Discussed the patient with Nursing staff reviewed the chart.~Reviewed interim history and current functioning. Reviewed vital signs,~Labs/ Radiology~and current medications noted below. Continue current treatment with the changes noted in the dictated addendum note Assessment: Vital Signs: Vital Signs Date Time Temp Pulse Resp B/P (MAP) Pulse Ox O2 Delivery O2 Flow Rate FiO2 09/23/18 19:45 96 100/62 09/23/18 16:04 98.4 20 96 09/18/18 06:17 Room Air I&O Intake and Output 09/23/18 06:59 Intake Total 720 ml Balance 720 ml Intake Oral 720 ml # Voids 1 Current Medications: Meds: Current Medications Acetaminophen (Tylenol) 650 mg PRN Q6HRS PRN PO PAIN / TEMP Last administered on 09/21/18 19:22; Start 09/06/18 at 18:15 Multi-Ingredient Ointment (Analgesic [place]) 1 jose raul PRN QID PRN TP MUSCLE PAIN; Start 09/06/18 at 18:15 Al Hydroxide/Mg Hydroxide (Mylanta Plus Xs) 15 ml PRN AFTMEALHC PRN PO DYSPEPS [place]; Start 09/06/18 at 18:15 Magnesium Hydroxide (Milk Of Magnesia) 2,400 mg PRN QHS PRN PO CONSTIPATION; Start 09/06/18 at 18:15 Levothyroxine Sodium (Synthroid) 112 mcg DAILYAC PO ; Start 09/07/18 at 07:30; Stop 09/07/18 at 07:30; Status DC Lisinopril (Prinivil) 20 mg DAILY PO Last administered on 09/23/18at 08:06; Start 09/07/18 at 09:00 Apixaban (Eliquis) 5 mg BID PO Last administered on 09/23/18at 19:38; Start 09/06/18 at 21:00 Aspirin (Children'S Aspirin) 81 mg DAILYWBKFT PO Last administered on 09/23/18at 08:06; Start 09/07/18 at 08:00 Furosemide (Lasix) 40 mg BIDWMEALS PO Last administered on 09/23/18at 17:21; Start 09/07/18 at 08:00 Quetiapine Fumarate (SEROquel) 100 mg BID PO Last administered on 09/23/18 19:39; Start 09/06/18 at 21:00 Spironolactone (Aldactone) 25 mg DAILY PO Last administered on 09/23/18 08:05; Start 09/07/18 at 09:00 Olanzapine (ZyPREXA ZYDIS) 2.5 mg PRN Q2HR PRN PO PSYCHOSIS Last administered on 09/19/18 10:07; Start 09/06/18 at 18:30 Levothyroxine Sodium (Synthroid) 112 mcg DAILYAC PO Last administered on 09/21/18 08:47; Start 09/07/18 at 06:00; Stop 09/22/18 at 00:51; Status DC Sertraline HCl (Zoloft) 25 mg DAILY PO Last administered on 09/11/18 07:35; Start 09/08/18 at 09:00; Stop 09/11/18 at 21:00; Status DC Sertraline HCl (Zoloft) 50 mg DAILY PO Last administered on 09/19/18 09:22; Start 09/12/18 at 09:00; Stop 09/19/18 at 10:30; Status DC Mirtazapine (Remeron) 7.5 mg QHS PO Last administered on 09/23/18 19:38; Start 09/07/18 at 21:00 Olanzapine (ZyPREXA ZYDIS) 5 mg 1X ONCE PO Last administered on 09/07/18 23:05; Start 09/07/18 at 23:00; Stop 09/07/18 at 23:02; Status DC Divalproex Sodium (Depakote Sprinkles) 125 mg 0900,1700 PO Last administered on 09/23/18 17:21; Start 09/08/18 at 17:00 Vitamin D (Vitamin D3) 50,000 unit WEEKLY PO Last administered on 09/17/18 08:36; Start 09/10/18 at 09:00 Trazodone HCl (Desyrel) 50 mg QHS PO Last administered on 09/23/18 19:39; Start 09/10/18 at 21:00 Trazodone HCl (Desyrel) 50 mg PRN QHS PRN PO INSOMNIA Last administered on 5/18 /19at 00:10; Start 09/10/18 at 10:15 Metoprolol Tartrate (Lopressor) 25 mg BID PO Last administered on 09/23/18at 19:45; Start 09/11/18 at 15:00 Sertraline HCl (Zoloft) 75 mg DAILY PO Last administered on 09/23/18at 08:05; Start 09/20/18 at 09:00 Levothyroxine Sodium (Synthroid) 112 mcg DAILY06 PO Last administered on 09/23/18at 05:55; Start 09/22/18 at 06:00 Active Scripts Active Reported Seroquel (Quetiapine Fumarate) 100 Mg Tablet 100 Mg PO BID Levothyroxine Sodium 112 Mcg Tablet 112 Mcg PO DAILYAC Aspirin 81 Mg Tab.chew 81 Mg PO DAILY Spironolactone 25 Mg Tablet 25 Mg PO DAILY Lisinopril 20 Mg Tablet 20 Mg PO DAILY Furosemide 40 Mg Tablet 40 Mg PO BIDWMEALS Eliquis (Apixaban) 5 Mg Tablet 5 Mg PO BID I have reviewed the current psychotropics carefully including drug interactions. Risk benefit ratio favors no change other than as noted in my dictated progress note. 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
[2018-09-24 06:17] VITALS: BP 150/72
[2018-09-24] MEDS: LEVOTHYROXINE 112 MCG TABLET PO SCH (06:25)
[2018-09-24] MEDS: ASPIRIN 81 MG TAB.CHEW PO SCH (08:29)
[2018-09-24] MEDS: FUROSEMIDE 40 MG TABLET PO SCH ×2 (08:30→17:03)
[2018-09-24] MEDS: DIVALPROEX 125 MG CAP.SPRINK PO SCH ×2 (08:30→17:03)
[2018-09-24] MEDS: SPIRONOLACTONE 25 MG TABLET PO SCH (08:30)
[2018-09-24] MEDS: METOPROLOL TART IMMED RELEASE 25 MG TABLET PO SCH ×2 (08:30→19:56)
[2018-09-24] MEDS: APIXABAN 5 MG TABLET. PO SCH ×2 (08:30→19:54)
[2018-09-24] MEDS: SERTRALINE 50 MG TABLET. PO SCH (08:31)
[2018-09-24] MEDS: QUEtiapine 100 MG TABLET. PO SCH (08:31)
[2018-09-24] MEDS: LISINOPRIL 20 MG TABLET PO SCH (08:31)
[2018-09-24] MEDS: CHOLECALCIFEROL (VITAMIN D3) 50,000 UNIT CAPSULE PO SCH (08:35)
[2018-09-24 15:41] VITALS: BP 121/75
[2018-09-24] MEDS: PHENYLEPH/MINERAL OIL/PETROLAT RECTAL OINTMENT 28GM TUBE. RC SCH (16:00)
[2018-09-24] MEDS: MIRTAZAPINE 7.5 MG TABLET. PO SCH (19:54)
[2018-09-24] MEDS: traZODone 50 MG TABLET. PO SCH (19:55)
--- NOTE | 2018-09-24 22:38 | PDOC ---
Exam Note: Mike Note: Please also refer to the separate dictated note~for this date of service dictated separately.~Patient seen individually. Discussed the patient with Nursing staff reviewed the chart.~Reviewed interim history and current functioning. Reviewed vital signs,~Labs/ Radiology~and current medications noted below. Continue current treatment with the changes noted in the dictated addendum note Assessment: Vital Signs: Vital Signs Date Time Temp Pulse Resp B/P (MAP) Pulse Ox O2 Delivery O2 Flow Rate FiO2 09/24/18 19:56 91 130/72 09/24/18 15:41 97.4 16 95 09/24/18 06:17 Room Air I&O Intake and Output 09/24/18 06:59 Intake Total 960 ml Balance 960 ml Intake Oral 960 ml Current Medications: Meds: Current Medications Acetaminophen (Tylenol) 650 mg PRN Q6HRS PRN PO PAIN / TEMP Last administered on 09/21/18 19:22; Start 09/06/18 at 18:15 Multi-Ingredient Ointment (Analgesic [place]) 1 jose raul PRN QID PRN TP MUSCLE PAIN; Start 09/06/18 at 18:15 Al Hydroxide/Mg Hydroxide (Mylanta Plus Xs) 15 ml PRN AFTMEALHC PRN PO DYSPEPSIA; Start 09/06/18 at 18:15 Magnesium Hydroxide (Milk Of Magnesia) 2,400 mg PRN QHS PRN PO CONSTIPATION; Start 09/06/18 at 18:15 Levothyroxine Sodium (Synthroid) 112 mcg DAILYAC PO ; Start 09/07/18 at 07:30; Stop 09/07/18 at 07:30; Status DC Lisinopril (Prinivil) 20 mg DAILY PO Last administered on 09/24/18at 08:31; Start 09/07/18 at 09:00 Apixaban (Eliquis) 5 mg BID PO Last administered on 09/24/18at 19:54; Start 09/06/18 at 21:00 Aspirin (Children'S Aspirin) 81 mg DAILYWBKFT PO Last administered on 09/24/18at 08:29; Start 09/07/18 at 08:00 Furosemide (Lasix) 40 mg BIDWMEALS PO Last administered on 09/24/18at 17:03; Start 09/07/18 at 08:00 Quetiapine Fumarate (SEROquel) 100 mg BID PO Last administered on 09/24/18 08:31; Start 09/06/18 at 21:00; Stop 09/24/18 at 18:54; Status DC Spironolactone (Aldactone) 25 mg DAILY PO Last administered on 09/24/18 08:30; Start 09/07/18 at 09:00 Olanzapine (ZyPREXA ZYDIS) 2.5 mg PRN Q2HR PRN PO PSYCHOSIS Last administered on 09/19/18 10:07; Start 09/06/18 at 18:30 Levothyroxine Sodium (Synthroid) 112 mcg DAILYAC PO Last administered on 09/21/18 08:47; Start 09/07/18 at 06:00; Stop 09/22/18 at 00:51; Status DC Sertraline HCl (Zoloft) 25 mg DAILY PO Last administered on 09/11/18 07:35; Start 09/08/18 at 09:00; Stop 09/11/18 at 21:00; Status DC Sertraline HCl (Zoloft) 50 mg DAILY PO Last administered on 09/19/18 09:22; Start 09/12/18 at 09:00; Stop 09/19/18 at 10:30; Status DC Mirtazapine (Remeron) 7.5 mg QHS PO Last administered on 09/24/18 19:54; Start 09/07/18 at 21:00 Olanzapine (ZyPREXA ZYDIS) 5 mg 1X ONCE PO Last administered on 09/07/18 23:05; Start 09/07/18 at 23:00; Stop 09/07/18 at 23:02; Status DC Divalproex Sodium (Depakote Sprinkles) 125 mg 0900,1700 PO Last administered on 09/24/18 17:03; Start 09/08/18 at 17:00 Vitamin D (Vitamin D3) 50,000 unit WEEKLY PO Last administered on 09/24/18 08:35; Start 09/10/18 at 09:00 Trazodone HCl (Desyrel) 50 mg QHS PO Last administered on 09/24/18 19:55; Start 09/10/18 at 21:00 Trazodone HCl (Desyrel) 50 mg PRN QHS PRN PO INSOMNIA Last administered on 09/17/18at 00:10; Start 09/10/18 at 10:15 Metoprolol Tartrate (Lopressor) 25 mg BID PO Last administered on 09/24/18at 19:56; Start 09/11/18 at 15:00 Sertraline HCl (Zoloft) 75 mg DAILY PO Last administered on 09/24/18at 08:31; Start 09/20/18 at 09:00 Levothyroxine Sodium (Synthroid) 112 mcg DAILY06 PO Last administered on 09/24/18at 06:25; Start 09/22/18 at 06:00 Phenyleph/Shark Oil/Min Oil/Petrol (Preparation H) 1 jose raul DAILY RC Last administered on 09/24/18at 16:00; Start 09/24/18 at 16:00; Stop 09/29/18 at 15:59 Quetiapine Fumarate (SEROquel) 50 mg DAILY PO ; Start 09/25/18 at 09:00 Quetiapine Fumarate (SEROquel) 150 mg HS PO ; Start 09/25/18 at 21:00 Active Scripts Active Reported Seroquel (Quetiapine Fumarate) 100 Mg Tablet 100 Mg PO BID Levothyroxine Sodium 112 Mcg Tablet 112 Mcg PO DAILYAC Aspirin 81 Mg Tab.chew 81 Mg PO DAILY Spironolactone 25 Mg Tablet 25 Mg PO DAILY Lisinopril 20 Mg Tablet 20 Mg PO DAILY Furosemide 40 Mg Tablet 40 Mg PO BIDWMEALS Eliquis (Apixaban) 5 Mg Tablet 5 Mg PO BID I have reviewed the current psychotropics carefully including drug interactions. Risk benefit ratio favors no change other than as noted in my dictated progress note. 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
[2018-09-25] MEDS: LEVOTHYROXINE 112 MCG TABLET PO SCH (05:08)
[2018-09-25 07:03] VITALS: BP 109/67
--- NOTE | 2018-09-25 08:43 | RAD ---
Three-view right rib detail series Clinical indications: Fall with right-sided chest pain. FINDINGS: There is a nondisplaced fracture of the lateral aspect of the right sixth rib. No lytic process is seen. IMPRESSION: Nondisplaced fracture of the right sixth rib. Electronically signed by: Luis Sorenson MD (09/25/2018 8:40 AM) [facility]
[2018-09-25 08:49] LABS: BASO # 0.1 x10^3/uL (0.0-0.2); BASO % 1 % (0-3); EOS # 0.4 x10^3/uL (0.0-0.7); EOS % 5 % (0-3); LYMPH # 2.2 x10^3/uL (1.0-4.8); LYMPH % 28 % (24-48); MEAN CORPUSCULAR HEMOGLOBIN 29 pg (25-35); MEAN CORPUSCULAR HGB CONC 33 g/dL (31-37); MEAN CORPUSCULAR VOLUME 88 fL (79-100); MONO # 0.8 x10^3/uL (0.0-1.1); MONO % 10 % (0-9); NEUT # 4.4 x10^3uL (1.8-7.7); NEUT % 55 % (31-73); PLATELET COUNT 341 x10^3/uL (140-400); RED BLOOD COUNT 4.43 x10^6/uL (4.30-5.70); RED CELL DISTRIBUTION WIDTH 17.4 % (11.5-14.5); WHITE BLOOD COUNT 7.9 x10^3/uL (4.0-11.0)
[2018-09-25] MEDS: LISINOPRIL 20 MG TABLET PO SCH (08:50)
[2018-09-25] MEDS: ASPIRIN 81 MG TAB.CHEW PO SCH (08:51)
[2018-09-25] MEDS: SERTRALINE 50 MG TABLET. PO SCH (08:52)
[2018-09-25] MEDS: SPIRONOLACTONE 25 MG TABLET PO SCH (08:52)
[2018-09-25] MEDS: DIVALPROEX 125 MG CAP.SPRINK PO SCH ×2 (08:52→17:51)
[2018-09-25] MEDS: APIXABAN 5 MG TABLET. PO SCH ×2 (08:52→20:05)
[2018-09-25] MEDS: PHENYLEPH/MINERAL OIL/PETROLAT RECTAL OINTMENT 28GM TUBE. RC SCH (08:53)
[2018-09-25] MEDS: METOPROLOL TART IMMED RELEASE 25 MG TABLET PO SCH ×2 (08:53→20:07)
[2018-09-25] MEDS: FUROSEMIDE 40 MG TABLET PO SCH ×2 (08:53→17:51)
[2018-09-25] MEDS: QUEtiapine 50 MG TABLET. PO SCH ×2 (08:54→20:06)
[2018-09-25 09:18] LABS: ALBUMIN 3.2 g/dL (3.4-5.0); ALBUMIN/GLOBULIN RATIO 0.7 (1.0-1.7); CALCIUM 9.5 mg/dL (8.5-10.1); CREATININE 1.3 mg/dL (0.7-1.3); GFR 53.4; POTASSIUM 4.2 mmol/L (3.5-5.1); TOTAL BILIRUBIN 0.5 mg/dL (0.2-1.0); TOTAL PROTEIN 8.1 g/dL (6.4-8.2)
[2018-09-25 16:04] VITALS: BP 98/66
[2018-09-25] MEDS: MIRTAZAPINE 7.5 MG TABLET. PO SCH (20:05)
[2018-09-25] MEDS: traZODone 50 MG TABLET. PO SCH (20:05)
[2018-09-25 21:50] VITALS: BP 131/84
--- NOTE | 2018-09-25 22:27 | RAD ---
CT head without contrast: Reason for examination: Fell and hit back of head. Axial images were obtained through the brain. No contrast was administered. Exposure: One or more of the following individualized dose reduction techniques were utilized for this examination: 1. Automated exposure control 2. Adjustment of the mA and/or kV according to patient size 3. Use of iterative reconstruction technique. Ventricular systems are dilated but symmetric and consistent with patient's advanced age and central atrophy. No midline shift is seen. There is no evidence of intracranial hemorrhage, infarct, mass or edema. No abnormalities are seen at the orbits. There is a small amount of fluid layering posteriorly in the right maxillary antrum. Remaining paranasal sinuses and mastoid air cells are clear. No acute abnormality seen in the skull. IMPRESSION: Mild central cerebral atrophy. No acute intracranial abnormality evident. Electronically signed by: Roselia Payne MD (09/25/2018 10:24 PM) [facility]
--- NOTE | 2018-09-25 22:28 | PDOC ---
Exam Note: Mike Note: Please also refer to the separate dictated note~for this date of service dictated separately.~Patient seen individually. Discussed the patient with Nursing staff reviewed the chart.~Reviewed interim history and current functioning. Reviewed vital signs,~Labs/ Radiology~and current medications noted below. Continue current treatment with the changes noted in the dictated addendum note Assessment: Vital Signs: Vital Signs Date Time Temp Pulse Resp B/P (MAP) Pulse Ox O2 Delivery O2 Flow Rate FiO2 09/25/18 20:07 90 98/66 09/25/18 16:04 97.4 20 97 09/24/18 06:17 Room Air I&O Intake and Output 09/25/18 07:00 Intake Total 1080 ml Balance 1080 ml Intake Oral 1080 ml Labs: Laboratory Tests Test 09/25/18 08:00 White Blood Count 7.9 x10^3/uL (4.0-11.0) Red Blood Count 4.43 x10^6/uL (4.30-5.70) Hemoglobin 13.0 g/dL (13.0-17.5) Hematocrit 39.0 % (39.0-53.0) Mean Corpuscular Volume 88 fL (79-100) Mean Corpuscular Hemoglobin 29 pg (25-35) Mean Corpuscular Hemoglobin Concent 33 g/dL (31-37) Red Cell Distribution Width 17.4 % (11.5-14.5) H Platelet Count 341 x10^3/uL (140-400) Neutrophils (%) (Auto) 55 % (31-73) Lymphocytes (%) (Auto) 28 % (24-48) Monocytes (%) (Auto) 10 % (0-9) H Eosinophils (%) (Auto) 5 % (0-3) H Basophils (%) (Auto) 1 % (0-3) Neutrophils # (Auto) 4.4 x10^3uL (1.8-7.7) Lymphocytes # (Auto) 2.2 x10^3/uL (1.0-4.8) Monocytes # (Auto) 0.8 x10^3/uL (0.0-1.1) Eosinophils # (Auto) 0.4 x10^3/uL (0.0-0.7) Basophils # (Auto) 0.1 x10^3/uL (0.0-0.2) Sodium Level 140 mmol/L (136-145) Potassium Level 4.2 mmol/L (3.5-5.1) Chloride Level 103 mmol/L (98-107) Carbon Dioxide Level 29 mmol/L (21-32) Anion Gap 8 (6-14) Blood Urea Nitrogen 37 mg/dL (8-26) H Creatinine 1.3 mg/dL (0.7-1.3) Estimated GFR (Cockcroft-Gault) 53.4 BUN/Creatinine Ratio 28 (6-20) H Glucose Level 87 mg/dL (70-99) Calcium Level 9.5 mg/dL (8.5-10.1) Total Bilirubin 0.5 mg/dL (0.2-1.0) Aspartate Amino Transferase (AST) 19 U/L (15-37) Alanine Aminotransferase (ALT) 32 U/L (16-63) Alkaline Phosphatase 86 U/L (46-116) Total Protein 8.1 g/dL (6.4-8.2) Albumin 3.2 g/dL (3.4-5.0) L Albumin/Globulin Ratio 0.7 (1.0-1.7) L Current Medications: Meds: Current Medications Acetaminophen (Tylenol) 650 mg PRN Q6HRS PRN PO PAIN / TEMP Last administered on 09/21/18at 19:22; Start 09/06/18 at 18:15 Multi-Ingredient Ointment (Analgesic [place]) 1 jose raul PRN QID PRN TP MUSCLE PAIN; Start 09/06/18 at 18:15 Al Hydroxide/Mg Hydroxide (Mylanta Plus Xs) 15 ml PRN AFTMEALHC PRN PO DYSPEPSIA; Start 09/06/18 at 18:15 Magnesium Hydroxide (Milk Of Magnesia) 2,400 mg PRN QHS PRN PO CONSTIPATION; Start 09/06/18 at 18:15 Levothyroxine Sodium (Synthroid) 112 mcg DAILYAC PO ; Start 09/07/18 at 07:30; Stop 09/07/18 at 07:30; Status DC Lisinopril (Prinivil) 20 mg DAILY PO Last administered on 09/25/18at 08:50; Start 09/07/18 at 09:00 Apixaban (Eliquis) 5 mg BID PO Last administered on 5/26/19at 20:05; Start 09/06/18 at 21:00 Aspirin (Children'S Aspirin) 81 mg DAILYWBKFT PO Last administered on 09/25/18 08:51; Start 09/07/18 at 08:00 Furosemide (Lasix) 40 mg BIDWMEALS PO Last administered on 09/25/18 17:51; Start 09/07/18 at 08:00 Quetiapine Fumarate (SEROquel) 100 mg BID PO Last administered on 09/24/18 08:31; Start 09/06/18 at 21:00; Stop 09/24/18 at 18:54; Status DC Spironolactone (Aldactone) 25 mg DAILY PO Last administered on 09/25/18 08:52; Start 09/07/18 at 09:00 Olanzapine (ZyPREXA ZYDIS) 2.5 mg PRN Q2HR PRN PO PSYCHOSIS Last administered on 09/19/18 10:07; Start 09/06/18 at 18:30 Levothyroxine Sodium (Synthroid) 112 mcg DAILYAC PO Last administered on 09/21/18 08:47; Start 09/07/18 at 06:00; Stop 09/22/18 at 00:51; Status DC Sertraline HCl (Zoloft) 25 mg DAILY PO Last administered on 09/11/18at 07:35; S tart 09/08/18 at 09:00; Stop 09/11/18 at 21:00; Status DC Sertraline HCl (Zoloft) 50 mg DAILY PO Last administered on 09/19/18 09:22; Start 09/12/18 at 09:00; Stop 09/19/18 at 10:30; Status DC Mirtazapine (Remeron) 7.5 mg QHS PO Last administered on 09/25/18 20:05; Start 09/07/18 at 21:00 Olanzapine (ZyPREXA ZYDIS) 5 mg 1X ONCE PO Last administered on 09/07/18 23:05; Start 09/07/18 at 23:00; Stop 09/07/18 at 23:02; Status DC Divalproex Sodium (Depakote Sprinkles) 125 mg 0900,1700 PO Last administered on 09/25/18 17:51; Start 09/08/18 at 17:00 Vitamin D (Vitamin D3) 50,000 unit WEEKLY PO Last administered on 09/24/18 08:35; Start 09/10/18 at 09:00 Trazodone HCl (Desyrel) 50 mg QHS PO Last administered on 09/25/18 20:05; Start 09/10/18 at 21:00 Trazodone HCl (Desyrel) 50 mg PRN QHS PRN PO INSOMNIA Last administered on 09/17/18at 00:10; Start 09/10/18 at 10:15 Metoprolol Tartrate (Lopressor) 25 mg BID PO Last administered on 09/25/18 20:07; Start 09/11/18 at 15:00 Sertraline HCl (Zoloft) 75 mg DAILY PO Last administered on 09/25/18 08:52; Start 09/20/18 at 09:00 Levothyroxine Sodium (Synthroid) 112 mcg DAILY06 PO Last administered on 09/25/18 05:08; Start 09/22/18 at 06:00 Phenyleph/Shark Oil/Min Oil/Petrol (Preparation H) 1 jose raul DAILY RC Last admi nistered on 09/25/18 08:53; Start 09/24/18 at 16:00; Stop 09/29/18 at 15:59 Quetiapine Fumarate (SEROquel) 50 mg DAILY PO Last administered on 09/25/18 08:54; Start 09/25/18 at 09:00 Quetiapine Fumarate (SEROquel) 150 mg HS PO Last administered on 09/25/18 20:06; Start 09/25/18 at 21:00 Active Scripts Active Reported Seroquel (Quetiapine Fumarate) 100 Mg Tablet 100 Mg PO BID Levothyroxine Sodium 112 Mcg Tablet 112 Mcg PO DAILYAC Aspirin 81 Mg Tab.chew 81 Mg PO DAILY Spironolactone 25 Mg Tablet 25 Mg PO DAILY Lisinopril 20 Mg Tablet 20 Mg PO DAILY Furosemide 40 Mg Tablet 40 Mg PO BIDWMEALS Eliquis (Apixaban) 5 Mg Tablet 5 Mg PO BID I have reviewed the current psychotropics carefully including drug interactions. Risk benefit ratio favors no change other than as noted in my dictated progress note. 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
[2018-09-26] MEDS: LEVOTHYROXINE 112 MCG TABLET PO SCH (05:22)
[2018-09-26 06:17] VITALS: BP 161/85
--- NOTE | 2018-09-26 07:35 | RAD ---
Left knee 2 views 09/25/2018. Reason for exam: Pain after falling. No fracture or dislocation is seen. Joint spaces are well maintained for age. There is no apparent joint effusion. There is suggestion of some soft tissue swelling anteriorly over the patellar tendon. IMPRESSION: No acute bony abnormality. Electronically signed by: Kali Fabian Jr., MD (09/26/2018 7:32 AM) [facility]
[2018-09-26] MEDS: FUROSEMIDE 40 MG TABLET PO SCH ×2 (08:00→16:24)
[2018-09-26] MEDS: METOPROLOL TART IMMED RELEASE 25 MG TABLET PO SCH ×2 (08:31→20:59)
[2018-09-26] MEDS: APIXABAN 5 MG TABLET. PO SCH ×2 (08:31→20:59)
[2018-09-26] MEDS: DIVALPROEX 125 MG CAP.SPRINK PO SCH ×2 (08:31→17:15)
[2018-09-26] MEDS: ASPIRIN 81 MG TAB.CHEW PO SCH (08:31)
[2018-09-26] MEDS: LISINOPRIL 20 MG TABLET PO SCH (08:32)
[2018-09-26] MEDS: QUEtiapine 50 MG TABLET. PO SCH ×2 (08:32→20:59)
[2018-09-26] MEDS: SERTRALINE 50 MG TABLET. PO SCH (08:32)
[2018-09-26] MEDS: SPIRONOLACTONE 25 MG TABLET PO SCH (09:00)
[2018-09-26] MEDS: PHENYLEPH/MINERAL OIL/PETROLAT RECTAL OINTMENT 28GM TUBE. RC SCH (09:00)
--- NOTE | 2018-09-26 12:17 | PN ---
DATE: 09/25/2018 PSYCHIATRIC PROGRESS NOTE This note covers elements not covered in my initial note 09/25/2018. SUBJECTIVE: I met with the patient evening of 09/25/2018. The patient slept 6 hours previous night. The patient had a fall yesterday. X-ray of the ribs was unremarkable. BUN has increased from 27-37, creatinine is unremarkable. Fluids are being pushed. He did have a shower, was pleasant. REVIEW OF SYSTEMS: No CV, , pulmonary, eye, ENT system symptoms on review. Reliability poor. MENTAL STATUS EXAM: Oriented to himself. Insight, judgment, recent and remote memory, attention, concentration, fund of knowledge poor, consistent with his diagnosis mentioned in my initial note. PLAN: No change from initial note. MAN Aaron LIM MD DR: JUDITH/dayna JOB#: [id number] / [id number]
[2018-09-26 16:14] VITALS: BP 92/58
--- NOTE | 2018-09-26 16:26 | RAD ---
AP view of the pelvis and two-view study of the right hip Clinical indications: Fall on September 24, 2018 and now has severe right hip pain. FINDINGS: No acute fracture or dislocation or lytic process evident. No diastases of the symphysis pubis or either SI joint is seen. IMPRESSION: No acute fracture. Electronically signed by: Luis Sorenson MD (09/26/2018 4:23 PM) [facility]
[2018-09-26] MEDS: MIRTAZAPINE 7.5 MG TABLET. PO SCH (20:59)
[2018-09-26] MEDS: traZODone 50 MG TABLET. PO SCH (20:59)
--- NOTE | 2018-09-26 22:34 | PDOC ---
Exam Note: Mike Note: Please also refer to the separate dictated note~for this date of service dictated separately.~Patient seen individually. Discussed the patient with Nursing staff reviewed the chart.~Reviewed interim history and current functioning. Reviewed vital signs,~Labs/ Radiology~and current medications noted below. Continue current treatment with the changes noted in the dictated addendum note Assessment: Vital Signs: Vital Signs Date Time Temp Pulse Resp B/P (MAP) Pulse Ox O2 Delivery O2 Flow Rate FiO2 09/26/18 20:59 87 92/58 09/26/18 16:14 98.0 16 95 09/25/18 21:50 Room Air I&O Intake and Output 09/26/18 06:59 Intake Total 780 ml Balance 780 ml Intake Oral 780 ml Current Medications: Meds: Current Medications Acetaminophen (Tylenol) 650 mg PRN Q6HRS PRN PO PAIN / TEMP Last administered on 09/21/18at 19:22; Start 09/06/18 at 18:15 Multi-Ingredient Ointment (Analgesic [place]) 1 jose raul PRN QID PRN TP MUSCLE PAIN; Start 09/06/18 at 18:15 Al Hydroxide/Mg Hydroxide (Mylanta Plus Xs) 15 ml PRN AFTMEALHC PRN PO DYSPEPSIA; Start 09/06/18 at 18:15 Magnesium Hydroxide (Milk Of Magnesia) 2,400 mg PRN QHS PRN PO CONSTIPATION; Start 09/06/18 at 18:15 Levothyroxine Sodium (Synthroid) 112 mcg DAILYAC PO ; Start 09/07/18 at 07:30; Stop 09/07/18 at 07:30; Status DC Lisinopril (Prinivil) 20 mg DAILY PO Last administered on 09/26/18at 08:32; Start 09/07/18 at 09:00 Apixaban (Eliquis) 5 mg BID PO Last administered on 09/26/18at 20:59; Start 09/06/18 at 21:00 Aspirin (Children'S Aspirin) 81 mg DAILYWBKFT PO Last administered on 09/26/18at 08:31; Start 09/07/18 at 08:00 Furosemide (Lasix) 40 mg BIDWMEALS PO Last administered on 09/25/18at 17:51; Start 09/07/18 at 08:00 Quetiapine Fumarate (SEROquel) 100 mg BID PO Last administered on 09/24/18 08:31; Start 09/06/18 at 21:00; Stop 09/24/18 at 18:54; Status DC Spironolactone (Aldactone) 25 mg DAILY PO Last administered on 09/25/18 08:52; Start 09/07/18 at 09:00 Olanzapine (ZyPREXA ZYDIS) 2.5 mg PRN Q2HR PRN PO PSYCHOSIS Last administered on 09/19/18at 10:07; Start 09/06/18 at 18:30 Levothyroxine Sodium (Synthroid) 112 mcg DAILYAC PO Last administered on 09/21/18 08:47; Start 09/07/18 at 06:00; Stop 09/22/18 at 00:51; Status DC Sertraline HCl (Zoloft) 25 mg DAILY PO Last administered on 09/11/18 07:35; Start 09/08/18 at 09:00; Stop 09/11/18 at 21:00; Status DC Sertraline HCl (Zoloft) 50 mg DAILY PO Last administered on 09/19/18 09:22; Start 09/12/18 at 09:00; Stop 09/19/18 at 10:30; Status DC Mirtazapine (Remeron) 7.5 mg QHS PO Last administered on 09/26/18 20:59; Start 09/07/18 at 21:00 Olanzapine (ZyPREXA ZYDIS) 5 mg 1X ONCE PO Last administered on 09/07/18 23:05; Start 09/07/18 at 23:00; Stop 09/07/18 at 23:02; Status DC Divalproex Sodium (Depakote Sprinkles) 125 mg 0900,1700 PO Last administered on 09/26/18at 17:15; Start 09/08/18 at 17:00 Vitamin D (Vitamin D3) 50,000 unit WEEKLY PO Last administered on 09/24/18 08:35; Start 09/10/18 at 09:00 Trazodone HCl (Desyrel) 50 mg QHS PO Last administered on 09/26/18at 20:59; Start 09/10/18 at 21:00 Trazodone HCl (Desyrel) 50 mg PRN QHS PRN PO INSOMNIA Last administered on 09/17/18 00:10; Start 09/10/18 at 10:15 Metoprolol Tartrate (Lopressor) 25 mg BID PO Last administered on 09/26/18 08:31; Start 09/11/18 at 15:00 Sertraline HCl (Zoloft) 75 mg DAILY PO Last administered on 09/26/18 08:32; Start 09/20/18 at 09:00 Levothyroxine Sodium (Synthroid) 112 mcg DAILY06 PO Last administered on 09/26/18 05:22; Start 09/22/18 at 06:00 Phenyleph/Shark Oil/Min Oil/Petrol (Preparation H) 1 jose raul DAILY RC Last administered on 09/25/18 08:53; Start 09/24/18 at 16:00; Stop 09/29/18 at 15:59 Quetiapine Fumarate (SEROquel) 50 mg DAILY PO Last administered on 09/26/18 08:32; Start 09/25/18 at 09:00 Quetiapine Fumarate (SEROquel) 150 mg HS PO Last administered on 09/26/18 20:59; Start 09/25/18 at 21:00 Active Scripts Active Reported Seroquel (Quetiapine Fumarate) 100 Mg Tablet 100 Mg PO BID Levothyroxine Sodium 112 Mcg Tablet 112 Mcg PO DAILYAC Aspirin 81 Mg Tab.chew 81 Mg PO DAILY Spironolactone 25 Mg Tablet 25 Mg PO DAILY Lisinopril 20 Mg Tablet 20 Mg PO DAILY Furosemide 40 Mg Tablet 40 Mg PO BIDWMEALS Eliquis (Apixaban) 5 Mg Tablet 5 Mg PO BID I have reviewed the current psychotropics carefully including drug interactions. Risk benefit ratio favors no change other than as noted in my dictated progress note. 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
--- NOTE | 2018-09-26 23:26 | PN ---
DATE: 09/26/2018 PSYCHIATRIC PROGRESS NOTE This note covers elements not covered in my initial note 09/26/2018. SUBJECTIVE: I met with the patient in the evening of 09/26/2018. Per nursing report, the patient slept 5-3/4 hours previous night. Remains confused, but redirectable. REVIEW OF SYSTEMS: No CV, , pulmonary, eye, ENT system symptoms on review. Reliability poor. MENTAL STATUS EXAM: Oriented to himself. Insight, judgment, recent and remote memory, attention, concentration, fund of knowledge poor, consistent with his diagnosis mentioned in my initial note. PLAN: No change from initial note. Transition to shelter this week. MAN Aaron LIM MD DR: JUDITH/dayna JOB#: [id number] / [id number]
--- NOTE | 2018-09-26 23:57 | PN ---
DATE: 09/23/2018 PSYCHIATRIC PROGRESS NOTE This late entry 09/23/2018 covers elements not covered in my initial note. SUBJECTIVE: I met with the patient in the evening of 09/23/2018. The patient slept 5-1/4 hours previous night. He is compliant with medications, drowsy in the morning, wandering around 3:00 p.m., wanting to go to his condo. Quite confused. REVIEW OF SYSTEMS: No CV, , pulmonary, eye, ENT system symptoms on review. Reliability poor. MENTAL STATUS EXAM: Oriented to himself. Insight, judgment, recent and remote memory, attention, concentration, fund of knowledge poor, consistent with his diagnosis mentioned in my initial note. PLAN: No change from initial note. MAN Aaron LIM MD DR: JUDITH/dayna JOB#: [id number] / [id number]
--- NOTE | 2018-09-27 00:57 | PN ---
DATE: 09/24/2018 PSYCHIATRIC PROGRESS NOTE This late entry 09/24/2018 covers elements not covered in my initial note. SUBJECTIVE: I met with the patient in the evening of 09/24/2018. The patient slept 6-1/2 hours previous night. Overall, he has had a good day. He did have a fall before lunch. Vitals are stable. Dr. Cheng was contacted. No pain is noted. X-ray of the ribs has been done. He does have hemorrhoids, Dr. Cheng is addressing this. REVIEW OF SYSTEMS: No CV, , pulmonary, eye, ENT system symptoms on review. Reliability poor. MENTAL STATUS EXAM: Oriented to himself. Insight, judgment, recent and remote memory, attention, concentration, fund of knowledge poor, consistent with his diagnosis mentioned in my initial note. PLAN: Increase Seroquel if needed, but for now we will change it from 100 mg b.i.d. to mg morning and 150 at night to give the bulk of it at night. He does have the GI symptoms of hemorrhoids, but oblivious to this. Rest unchanged. MAN Aaron LIM MD DR: JUDITH/dayna JOB#: [id number] / [id number]
[2018-09-27] MEDS ORDERED: ACET500T68 PO (03:55)
[2018-09-27] MEDS ORDERED: CHOL500021 PO (03:56)
[2018-09-27] MEDS ORDERED: DIVA125C2 PO (04:07)
[2018-09-27] MEDS ORDERED: MAG30ORA2 PO (04:10)
[2018-09-27] MEDS ORDERED: MAGN400O7 PO (04:11)
[2018-09-27] MEDS ORDERED: METH29OI TP (04:12)
[2018-09-27] MEDS ORDERED: METO25TA4 PO (04:13)
[2018-09-27] MEDS ORDERED: MIRT15TA3 PO (04:14)
[2018-09-27] MEDS ORDERED: OLAN5TAB5 PO (04:16)
[2018-09-27] MEDS ORDERED: WITC1MED RC (04:18)
[2018-09-27] MEDS ORDERED: QUET100T4 PO (04:19)
[2018-09-27] MEDS ORDERED: QUET50TA5 PO (04:19)
[2018-09-27] MEDS ORDERED: SERT50TA8 PO (04:20)
[2018-09-27] MEDS: LEVOTHYROXINE 112 MCG TABLET PO SCH (06:00)
[2018-09-27 06:01] VITALS: BP 142/93
[2018-09-27 07:26] LABS: BASO # 0.1 x10^3/uL (0.0-0.2); BASO % 1 % (0-3); EOS # 0.3 x10^3/uL (0.0-0.7); EOS % 4 % (0-3); HEMATOCRIT 37.2 % (39.0-53.0); HEMOGLOBIN 12.2 g/dL (13.0-17.5); LYMPH # 1.9 x10^3/uL (1.0-4.8); LYMPH % 24 % (24-48); MEAN CORPUSCULAR HEMOGLOBIN 29 pg (25-35); MEAN CORPUSCULAR HGB CONC 33 g/dL (31-37); MEAN CORPUSCULAR VOLUME 88 fL (79-100); MONO # 0.8 x10^3/uL (0.0-1.1); MONO % 11 % (0-9); NEUT # 4.9 x10^3uL (1.8-7.7); NEUT % 61 % (31-73); PLATELET COUNT 321 x10^3/uL (140-400); RED BLOOD COUNT 4.25 x10^6/uL (4.30-5.70); RED CELL DISTRIBUTION WIDTH 17.3 % (11.5-14.5)
[2018-09-27 07:47] LABS: ALBUMIN 2.9 g/dL (3.4-5.0); ALBUMIN/GLOBULIN RATIO 0.7 (1.0-1.7); CALCIUM 9.1 mg/dL (8.5-10.1); CREATININE 1.2 mg/dL (0.7-1.3); GFR 58.6; POTASSIUM 4.2 mmol/L (3.5-5.1); TOTAL BILIRUBIN 0.4 mg/dL (0.2-1.0); TOTAL PROTEIN 7.2 g/dL (6.4-8.2)
[2018-09-27] MEDS: FUROSEMIDE 40 MG TABLET PO SCH (08:00)
[2018-09-27] MEDS: ASPIRIN 81 MG TAB.CHEW PO SCH (08:17)
[2018-09-27] MEDS: APIXABAN 5 MG TABLET. PO SCH (08:17)
[2018-09-27] MEDS: DIVALPROEX 125 MG CAP.SPRINK PO SCH (08:17)
[2018-09-27 08:18] VITALS: BP 142/93
[2018-09-27] MEDS: QUEtiapine 50 MG TABLET. PO SCH (08:18)
[2018-09-27] MEDS: LISINOPRIL 20 MG TABLET PO SCH (08:18)
[2018-09-27] MEDS: PHENYLEPH/MINERAL OIL/PETROLAT RECTAL OINTMENT 28GM TUBE. RC SCH (08:18)
[2018-09-27] MEDS: SERTRALINE 50 MG TABLET. PO SCH (08:18)
[2018-09-27] MEDS: METOPROLOL TART IMMED RELEASE 25 MG TABLET PO SCH (08:18)
[2018-09-27] MEDS: SPIRONOLACTONE 25 MG TABLET PO SCH (09:00)
[2018-09-27] MEDS ORDERED: TRAZ-120 PO ×2 (10:28→10:29)
--- NOTE | 2018-09-27 18:26 | PDOC ---
Exam Note: Mike Note: Please also refer to the separate dictated note~for this date of service dictated separately.~Patient seen individually. Discussed the patient with Nursing staff reviewed the chart.~Reviewed interim history and current functioning. Reviewed vital signs,~Labs/ Radiology~and current medications noted below. Continue current treatment with the changes noted in the dictated addendum note Assessment: Vital Signs: Vital Signs Date Time Temp Pulse Resp B/P (MAP) Pulse Ox O2 Delivery O2 Flow Rate FiO2 09/27/18 08:18 87 142/93 09/27/18 06:01 97.3 20 92 09/25/18 21:50 Room Air I&O Intake and Output 09/27/18 07:00 Intake Total 1560 ml Balance 1560 ml Intake Oral 1560 ml # Voids 1 Labs: Laboratory Tests Test 09/27/18 07:12 White Blood Count 8.0 x10^3/uL (4.0-11.0) Red Blood Count 4.25 x10^6/uL (4.30-5.70) L Hemoglobin 12.2 g/dL (13.0-17.5) L Hematocrit 37.2 % (39.0-53.0) L Mean Corpuscular Volume 88 fL (79-100) Mean Corpuscular Hemoglobin 29 pg (25-35) Mean Corpuscular Hemoglobin Concent 33 g/dL (31-37) Red Cell Distribution Width 17.3 % (11.5-14.5) H Platelet Count 321 x10^3/uL (140-400) Neutrophils (%) (Auto) 61 % (31-73) Lymphocytes (%) (Auto) 24 % (24-48) Monocytes (%) (Auto) 11 % (0-9) H Eosinophils (%) (Auto) 4 % (0-3) H Basophils (%) (Auto) 1 % (0-3) Neutrophils # (Auto) 4.9 x10^3uL (1.8-7.7) Lymphocytes # (Auto) 1.9 x10^3/uL (1.0-4.8) Monocytes # (Auto) 0.8 x10^3/uL (0.0-1.1) Eosinophils # (Auto) 0.3 x10^3/uL (0.0-0.7) Basophils # (Auto) 0.1 x10^3/uL (0.0-0.2) Sodium Level 142 mmol/L (136-145) Potassium Level 4.2 mmol/L (3.5-5.1) Chloride Level 106 mmol/L (98-107) Carbon Dioxide Level 28 mmol/L (21-32) Anion Gap 8 (6-14) Blood Urea Nitrogen 31 mg/dL (8-26) H Creatinine 1.2 mg/dL (0.7-1.3) Estimated GFR (Cockcroft-Gault) 58.6 BUN/Creatinine Ratio 26 (6-20) H Glucose Level 85 mg/dL (70-99) Calcium Level 9.1 mg/dL (8.5-10.1) Total Bilirubin 0.4 mg/dL (0.2-1.0) Aspartate Amino Transferase (AST) 17 U/L (15-37) Alanine Aminotransferase (ALT) 28 U/L (16-63) Alkaline Phosphatase 80 U/L (46-116) Total Protein 7.2 g/dL (6.4-8.2) Albumin 2.9 g/dL (3.4-5.0) L Albumin/Globulin Ratio 0.7 (1.0-1.7) L Current Medications: Meds: Current Medications Acetaminophen (Tylenol) 650 mg PRN Q6HRS PRN PO PAIN / TEMP Last administered on 09/21/18at 19:22; Start 09/06/18 at 18:15; Stop 09/27/18 at 14:05; Status DC Multi-Ingredient Ointment (Analgesic [place]) 1 maria c PRN QID PRN TP MUSCLE PAIN; Start 09/06/18 at 18:15; Stop 09/27/18 at 14:05; Status DC Al Hydroxide/Mg Hydroxide (Mylanta Plus Xs) 15 ml PRN AFTMEALHC PRN PO DYS PEPSIA; Start 09/06/18 at 18:15; Stop 09/27/18 at 14:05; Status DC Magnesium Hydroxide (Milk Of Magnesia) 2,400 mg PRN QHS PRN PO CONSTIPATION; Start 09/06/18 at 18:15; Stop 09/27/18 at 14:05; Status DC Levothyroxine Sodium (Synthroid) 112 mcg DAILYAC PO ; Start 09/07/18 at 07:30; Stop 09/07/18 at 07:30; Status DC Lisinopril (Prinivil) 20 mg DAILY PO Last administered on 09/27/18at 08:18; Start 09/07/18 at 09:00; Stop 09/27/18 at 14:05; Status DC Apixaban (Eliquis) 5 mg BID PO Last administered on 09/27/18at 08:17; Start 09/06/18 at 21:00; Stop 09/27/18 at 14:05; Status DC Aspirin (Children'S Aspirin) 81 mg DAILYWBKFT PO Last administered on 09/27/18at 08:17; Start 09/07/18 at 08:00; Stop 09/27/18 at 14:05; Status DC Furosemide (Lasix) 40 mg BIDWMEALS PO Last administered on 09/25/18at 17:51; Start 09/07/18 at 08:00; Stop 09/27/18 at 14:05; Status DC Quetiapine Fumarate (SEROquel) 100 mg BID PO Last administered on 09/24/18at 08:31; Start 09/06/18 at 21:00; Stop 09/24/18 at 18:54; Status DC Spironolactone (Aldactone) 25 mg DAILY PO Last administered on 09/25/18at 08:52; Start 09/07/18 at 09:00; Stop 09/27/18 at 14:05; Status DC Olanzapine (ZyPREXA ZYDIS) 2.5 mg PRN Q2HR PRN PO PSYCHOSIS Last administered on 09/19/18at 10:07; Start 09/06/18 at 18:30; Stop 09/27/18 at 14:05; Status DC Levothyroxine Sodium (Synthroid) 112 mcg DAILYAC PO Last administered on 09/21/18at 08:47; Start 09/07/18 at 06:00; Stop 09/22/18 at 00:51; Status DC Sertraline HCl (Zoloft) 25 mg DAILY PO Last administered on 09/11/18at 07:35; Start 09/08/18 at 09:00; Stop 09/11/18 at 21:00; Status DC Sertraline HCl (Zoloft) 50 mg DAILY PO Last administered on 09/19/18at 09:22; Start 09/12/18 at 09:00; Stop 09/19/18 at 10:30; Status DC Mirtazapine (Remeron) 7.5 mg QHS PO Last administered on 09/26/18at 20:59; Start 09/07/18 at 21:00; Stop 09/27/18 at 14:05; Status DC Olanzapine (ZyPREXA ZYDIS) 5 mg 1X ONCE PO Last administered on 09/07/18at 23:05; Start 09/07/18 at 23:00; Stop 09/07/18 at 23:02; Status DC Divalproex Sodium (Depakote Sprinkles) 125 mg 0900,1700 PO Last administered on 09/27/18at 08:17; Start 09/08/18 at 17:00; Stop 09/27/18 at 14:05; Status DC Vitamin D (Vitamin D3) 50,000 unit WEEKLY PO Last administered on 09/24/18at 08:35; Start 09/10/18 at 09:00; Stop 09/27/18 at 14:05; Status DC Trazodone HCl (Desyrel) 50 mg QHS PO Last administered on 09/26/18at 20:59; Start 09/10/18 at 21:00; Stop 09/27/18 at 14:05; Status DC Trazodone HCl (Desyrel) 50 mg PRN QHS PRN PO INSOMNIA Last administered on 09/17/18at 00:10; Start 09/10/18 at 10:15; Stop 09/27/18 at 14:05; Status DC Metoprolol Tartrate (Lopressor) 25 mg BID PO Last administered on 09/27/18at 08:18; Start 09/11/18 at 15:00; Stop 09/27/18 at 14:05; Status DC Sertraline HCl (Zoloft) 75 mg DAILY PO Last administered on 09/27/18at 08:18; Start 09/20/18 at 09:00; Stop 09/27/18 at 14:05; Status DC Levothyroxine Sodium (Synthroid) 112 mcg DAILY06 PO Last administered on 09/27/18at 06:00; Start 09/22/18 at 06:00; Stop 09/27/18 at 14:05; Status DC Phenyleph/Shark Oil/Min Oil/Petrol (Preparation H) 1 maria c DAILY RC Last administered on 09/25/18at 08:53; Start 09/24/18 at 16:00; Stop 09/27/18 at 14:05; Status DC Quetiapine Fumarate (SEROquel) 50 mg DAILY PO Last administered on 09/27/18at 08:18; Start 09/25/18 at 09:00; Stop 09/27/18 at 14:05; Status DC Quetiapine Fumarate (SEROquel) 150 mg HS PO Last administered on 09/26/18at 20:59; Start 09/25/18 at 21:00; Stop 09/27/18 at 14:05; Status DC Active Scripts Active Reported Trazodone Hcl 50 Mg Tablet 1 Tab PO QHS PRN Trazodone Hcl 50 Mg Tablet 1 Tab PO QHS Sertraline Hcl 50 Mg Tablet 75 Mg PO DAILY Seroquel (Quetiapine Fumarate) 50 Mg Tablet 50 Mg PO DAILY Seroquel (Quetiapine Fumarate) 100 Mg Tablet 150 Mg PO HS Preparation H (Yeni Hardin) 1 Each Med..pad 1 Maria C RC DAILY PRN Zyprexa Zydis (Olanzapine) 5 Mg Tab.rapdis 2.5 Mg PO PRN Q2HR PRN Mirtazapine 15 Mg Tablet 7.5 Mg PO HS Metoprolol Tartrate 25 Mg Tablet 25 Mg PO BID Analgesic [place] (Methyl Salicylate/Menthol) 28 Gm Oint...g. 1 Maria C TP PRN QID PRN Milk Of Magnesia (Magnesium Hydroxide) 400 Mg/5 Ml Oral.susp 2,400 Mg PO PRN DAILY PRN Mag-Al Plus Xs Suspension (Mag Hydrox/Al Hydrox/Simeth) 30 Ml Oral.susp 15 Ml PO PRN AFTMEALHC PRN Depakote Sprinkle (Divalproex Sodium) 125 Mg Cap.sprink 125 Mg PO [id number] D3-50 (Cholecalciferol (Vitamin D3)) 50,000 Unit Capsule 50,000 Unit PO WEEKLY ON WEDNESDAY Acetaminophen 500 Mg Tablet 650 Mg PO PRN Q6HRS PRN Levothyroxine Sodium 112 Mcg Tablet 112 Mcg PO DAILYAC Aspirin 81 Mg Tab.chew 81 Mg PO DAILY Spironolactone 25 Mg Tablet 25 Mg PO DAILY Lisinopril 20 Mg Tablet 20 Mg PO DAILY Furosemide 40 Mg Tablet 40 Mg PO BIDWMEALS Eliquis (Apixaban) 5 Mg Tablet 5 Mg PO BID I have reviewed the current psychotropics carefully including drug interactions. Risk benefit ratio favors no change other than as noted in my dictated progress note. 

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
== END 2018-09-27 14:04 | DRG 56 ==
LOC: GEROPSY 17:30
PROVIDERS: ADMIT Psychiatry & Neurology Psychiatry; ATTEND Psychiatry & Neurology Psychiatry
DX: G30.9 Alzheimer's disease, unspecified (principal); E43 Unspecified severe protein-calorie malnutrition; F01.51 Vascular dementia, unspecified severity, with behavioral disturbance; F02.81 Dementia in other diseases classified elsewhere, unspecified severity, with behavioral disturbance; F10.27 Alcohol dependence with alcohol-induced persisting dementia; E03.9 Hypothyroidism, unspecified; E78.5 Hyperlipidemia, unspecified; F32.9 Major depressive disorder, single episode, unspecified; F63.9 Impulse disorder, unspecified; F41.9 Anxiety disorder, unspecified; G47.00 Insomnia, unspecified; I10 Essential (primary) hypertension; F10.20 Alcohol dependence, uncomplicated; G89.29 Other chronic pain; W18.39XA Other fall on same level, initial encounter; I48.91 Unspecified atrial fibrillation; J44.9 Chronic obstructive pulmonary disease, unspecified; K59.09 Other constipation; K64.9 Unspecified hemorrhoids; M15.9 Polyosteoarthritis, unspecified; N40.0 Benign prostatic hyperplasia without lower urinary tract symptoms; Z66 Do not resuscitate; Z79.899 Other long term (current) drug therapy; Z85.51 Personal history of malignant neoplasm of bladder; Z86.73 Personal history of transient ischemic attack (TIA), and cerebral infarction without residual deficits; Z88.8 Allergy status to other drugs, medicaments and biological substances; Y93.89 Activity, other specified; Y92.89 Other specified places as the place of occurrence of the external cause; Y99.8 Other external cause status; Z68.22 Body mass index [BMI] 22.0-22.9, adult
CPT/HCPCS: 36415; 70450; 71046; 71100; 73502; 73560; 80053; 80061; 80164; 82306; 83036; 83540; 83550; 83735; 84436; 84443; 84480; 85025; 86592; 93005; 97116; 97530; 97535